=== PATIENT | male | born 1945 | race Caucasian/White ===

== ENCOUNTER 2017-08-09 16:57 | Emergency (ER) | payer MEDICARE, BC ==
[2017-08-09] MEDS ORDERED: Acetaminophen TAB* 325 MG PO ONE (18:12)
[2017-08-09] MEDS ORDERED: Ketorolac TAB * 10 MG TAB PO PRN ×2 (18:12→19:36)
--- NOTE | 2017-08-09 18:12 | RAD ---
INDICATION: Left shoulder injury. TECHNIQUE: 3 views of the left shoulder were obtained. FINDINGS: There is a comminuted oblique fracture of the mid diaphysis of the humerus with a large butterfly fragment present. The fracture fragments are displaced with the distal fragment displaced posteriorly approximately one shaft diameter relative the proximal fragment. In addition there is anterior dislocation of the humeral head. There is a Hill-Sachs fracture present which is likely chronic. There is a surgical screw which projects overlying the scapula. IMPRESSION: 1. OBLIQUE COMMINUTED DISPLACED FRACTURE OF THE MID DIAPHYSIS OF THE HUMERUS. 2. ANTERIOR DISLOCATION OF THE HUMERAL HEAD. 3. HILL-SACHS FRACTURE LIKELY CHRONIC. 4. SURGICAL SCREW WITHIN THE SCAPULA.
--- NOTE | 2017-08-09 18:15 | RAD ---
INDICATION: Left humerus injury. TECHNIQUE: 2 views of the left humerus were obtained. FINDINGS: Again note is made of an oblique comminuted fracture of the mid diaphysis of the humerus with a large butterfly fragment. The fracture fragments are displaced with the major distal fragment displaced posteriorly one shaft diameter. There is anterior dislocation of the humeral head as previously noted. There appears be a chronic Hill-Sachs fracture present. IMPRESSION: 1. OBLIQUE COMMINUTED DISPLACED FRACTURE OF THE MID DIAPHYSIS OF THE HUMERUS. 2. ANTERIOR DISLOCATION OF THE HUMERAL HEAD.
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
[2017-08-09 21:09] VITALS: BP 174/69
== END 2017-08-09 21:08 | disposition home or self-care (01) ==
LOC: ED 16:57
DX: S42.352A Displaced comminuted fracture of shaft of humerus, left arm, initial encounter for closed fracture (principal); S53.115A Anterior dislocation of left ulnohumeral joint, initial encounter; W19.XXXA Unspecified fall, initial encounter; Y92.9 Unspecified place or not applicable; G20 Parkinson's disease; F41.8 Other specified anxiety disorders; R35.0 Frequency of micturition; Z91.81 History of falling; Z88.8 Allergy status to other drugs, medicaments and biological substances; Z88.5 Allergy status to narcotic agent
CPT/HCPCS: 99283; A9270-GY

== ENCOUNTER 2017-11-15 09:53 | Inpatient (IN) | payer MEDICARE, BC ==
--- NOTE | 2017-11-10 21:38 | HP ---
PREOPERATIVE HISTORY AND PHYSICAL: DATE OF ADMISSION/SURGERY: 11/15/17. DATE OF OFFICE VISIT: 11/09/17. ATTENDING SURGEON: Dr. Linsey Galindo. * (DICTATED BY HERNANDEZ WAKEFIELD) PROCEDURE: Open reduction and internal fixation of the left humerus nonunion, malunion. CHIEF COMPLAINT: Left proximal humerus fracture. HISTORY OF PRESENT ILLNESS: Brian is a 72-year-old male, with history of Parkinson's disease, who presents to the clinic for followup of his left humeral shaft fracture. He has failed conservative measures to include a sling and a Adhikari brace and had a nonunion or malunion of the left humerus. Therefore, he has agreed to undergo an open reduction and internal fixation of the left humerus nonunion, malunion with Dr. Galindo on 11/15/17. PAST MEDICAL HISTORY: Depression, Parkinson, and deep brain stimulator. PAST SURGICAL HISTORY: Left and right total hip replacement, left lateral J with rotator cuff repair, and placement of a deep brain stimulator. The patient states that he had a complications after his last hip replacement with delirium after anesthesia. MEDICATIONS: 1. Tramadol 50 mg 1 to 2 every 6 hours as needed for pain. 2. Paroxetine 40 mg 1 by mouth in the morning. 3. Oxybutynin 3% 1 packet per day. 4. Carbidopa and levodopa 25/100 mg 1 tablet daily. 5. Tamsulosin HCL 0.4 mg 1 by mouth everyday. 6. Rytary 61.25/245 mg 3 capsules, 3 times a day. 7. Tylenol 650 mg at night and 250 mg during the day. 8. Ibuprofen 200 mg as needed. 9. Stool softener 2 to 3 times daily. 10. Ropinirole 1 mg 1 by mouth twice a day. 11. Diclofenac 50 mg 1 by mouth daily. 12. Calcium with vitamin D daily. 13. Aricept 5 mg 1 by mouth in the evening. ALLERGIES: OXYCODONE, GABAPENTIN. FAMILY HISTORY: Denies pertinent family history. Denies family history of DVT or PE. SOCIAL HISTORY: He lives with his . He is not a smoker. He reports occasional alcohol consumption. He is right hand dominant. He denies illegal drug use. REVIEW OF SYSTEMS: A 14-point review of systems was reviewed with the patient. Positive for Parkinson's disease, otherwise negative. He denies fevers, chills , chest pain, shortness of breath, history of DVT or PE, history of bleeding disorder. PHYSICAL EXAMINATION GENERAL: A 72-year-old well-developed, well-nourished male, in no acute distress. Alert and oriented x3. Appropriate mood and affect. Appropriate balance and coordination of the upper extremities. VITAL SIGNS: Height 66, weight 184. Pulse 78, blood pressure 140/78, respiratory rate 20, BMI 29.7. HEENT: Normocephalic, atraumatic. PERRLA. Throat clear. NECK: Supple. CARDIO: Regular rate and rhythm. S1, S2. No murmurs, gallops, or rubs. ABDOMEN: Soft, nontender. Positive bowel sounds. NEURO: Alert and oriented x3. Cranial nerves grossly intact. Sensation intact to light touch. MUSCULOSKELETAL: Left upper extremity: The skin is intact. Elbow flexion to 95 degrees, extension to 0. Full range of motion of the wrist and hand. Tenderness to palpation over the humerus. +2 radial pulse. Sensation intact to light touch distally. DIAGNOSTIC STUDIES: Multi view x-rays revealed no significant amount of healing of the left humeral shaft fracture. IMPRESSION: Left humerus fracture nonunion, malunion. PLAN: The patient is scheduled to undergo an open reduction and internal fixation of the left humerus nonunion, malunion with Dr. Galindo on 11/15/17. He does have a history of Parkinson's disease with a deep brain stimulator. He was discussed with the anesthesia this case will likely have to be done under general anesthesia with a block for pain management. We will use a bipolar for cautery as per [employer]'s recommendation and we will use tramadol postop since oxycodone caused issues postoperatively with his last surgery. We will request approval of a bone stimulator for use postoperatively since he already has a nonunion, malunion and is a poor healer. This will decrease his chance of him needing another surgery after this ORIF. He will also be in a Adhikari brace postoperatively and we are checking his vitamin D levels to make sure he has appropriate levels for healing. He will follow up in 10 to 14 days postop for followup and suture removal as well as x-rays. Tramadol will be used for postop pain management and he will be admitted after surgery to monitor his lethargy postoperatively. HERNANDEZ WAKEFIELD [id number]/[facility] #: [id number] [facility] SYSTEMAnya
[~2017-11-15 09:53] MED LIST: Buffered Lidocaine 0.9% SYRIN* 5 ML/SYR SYRINGE INTRADERM ONE; ROPIVACAINE 5 MG/ML 30 ML BTL (0.5%) ONE
--- OUTSIDE RECORDS SUMMARY | 2017-11-15 10:00 | XMS REPORT ---
:1945 External Reference #:[id number] Author Organization [employer] Address [address] [place] [address] [place] [address] Phone [phone] Care Team Providers Name Role Phone Eddie Lauren MD Primary Care Physician Unavailable Payers Type Date Identification Numbers Payment Provider Subscriber Medicare Primary Policy Number: [id number] Medicare Cristóbal Meier PayID: [id number] [address] [place] [address] Medigap Part B Expires: 2017 Policy Number: [id number] Medicare Cristóbaljoby Castilloni PayID: [id number] [address] [place] [address] Medigap Part B Policy Number: [id number] [facility] Cristóbal Meier PayID: [id number] [address] [place] [address] Workers Compensation Expires: Policy Number: [place] Domenica Camarena 2010 [id number] Exchange Renea Onset: 2011 PayID: [id number] [address] [place] [address] Problems Date Description Provider Status Onset: 06/28/2013 Syncope and collapse Ernst Mott M.D. Active Onset: 11/18/2014 Encounter for other orthopedic Ramon Pope M.D. Active aftercare Onset: 12/18/2014 Late effect of dislocation Ramon Pope M.D. Active Onset: 12/25/2015 Prosthetic arthroplasty of the hip Kristine Burleson M.D. Active Onset: 08/11/2017 Closed fracture of humerus Linsey Galindo MD Active Family History Date Family Member(s) Problem(s) Comments General Cancer Social History Type Date Description Comments Lives With spouse ETOH Use Rarely consumes alcohol Smoking Patient has never smoked Exercise Type/Frequency Exercises rarely Allergies, Adverse Reactions, Alerts Date Description Reaction Status Severity Comments 11/16/2015 Oxycodone disorientation active 11/16/2015 Gabapentin disorientation active 02/13/2013 NKDA inactive Medications Medication Date Status Form Strength Qnty SIG Indications Ordering Provider Tramadol HCL 08/17/ Active Tablets 50mg 40tabs 1-2 tablet Zaneb 2017 by mouth MD Josie every 6 hours as needed pain Paroxetine / Active 40mg 1 tablet Am Unknown 0000 Oxybutinin / Active Topical 1packet/day Unknown 3% 0000 Carbidopa/Le / Active 25/100mg 1 tablets Unknown vodopa 0000 daily Tamsulosin / Active Capsules 0.4mg 1 by mouth Unknown HCL 0000 every day Rytary / Active Capsules 61.25-245m 3 capsules 3 Unknown 0000 ER g times day Tylenol / Active 650 mg at Unknown 0000 night, 250mg during the day Ibuprofen / Active 200mg prn Unknown 0000 Stool / Active 2-3x daily Unknown Softener 0000 Ropinirole / Active Tablets 1mg 1 tab by Unknown HCL 0000 mouth with bid Diclofenac / Active Tablets DR 50mg Unknown Sodium 0000 Calcium + D / Active daily Unknown 0000 Aricept / Active Tablets 5mg take one Unknown 0000 tablet by mouth in the evening [place] 11/15/ Hx Tablets 5-325mg 70tabs 1-2 tablets M16.11 2015 - by mouth Bordoni, 02/17/ every 4-6 TESTER/LIFT TRUCKER 2016 hours as needed for pain. Coumadin 11/15/ Hx Tablets 2mg 45tabs 1 by mouth M16.11 2015 - daily post Bordoni, 02/17/ operatively TESTER/LIFT TRUCKER 2015 or as directed by vns/. do not take this medication prior to surgery [place] 09/08/ Hx Tablets 5-325mg 40tabs 1-2 tablets 2015 - by mouth Bordoni, 02/17/ every 4-6 TESTER/LIFT TRUCKER 2016 hours as needed for pain. [place] 09/23/ Hx Tablets 5-325mg 50tabs 1-2 by mouth 831.01 Ramon 2014 - every 4 to 6 Young, 02/16/ hours as M.D. 2014 needed pain Keflex 07/09/ Hx Capsules 500mg 9caps 1 by mouth Ernst Karimi 2013 - three times Brand, 07/16/ a day for 3 M.D. 2013 days Tamsulosin 00/00/ Hx Unknown - 2013 Flomax /00/ Hx 0.4mg 1 tablet hs Unknown 2014 Neurontin /00/ Hx Unknown - 2013 Klonopin 00/ Hx 0.5mg 1-4 tab prn Unknown - 2014 Sinemet /00/ Hx Unknown 2013 Requip 0000/ Hx 1mg 1 tab every Unknown 0000 - 2 hr while 09/07/ awake, max 2015 dosage 24mg/day Aspirin 00/ Hx Tablets 81mg 1 by mouth Unknown 0000 - every day 2015 Ibuprofen 00/00/ Hx 2 tablets Unknown 0000 - bid prn 2015 Vital Signs Date Vital Result Comment 11/09/2017 Height 66 inches 5'6" Weight 184.25 lb Heart Rate 78 /min BP Systolic 140 mmHg BP Diastolic 78 mmHg Respiratory Rate 20 /min Pain Level 0 BMI (Body Mass Index) 29.7 kg/m2 11/02/2017 Height 66 inches 5'6" Weight 189.00 lb Heart Rate 76 /min BP Systolic Sitting 142 mmHg BP Diastolic Sitting 86 mmHg Respiratory Rate 14 /min Pain Level 0 BMI (Body Mass Index) 30.5 kg/m2 10/05/2017 Height 66 inches 5'6" Weight 189.00 lb Heart Rate 80 /min BP Systolic Sitting 110 mmHg BP Diastolic Sitting 70 mmHg Respiratory Rate 28 /min Body Temperature 96.1 F Pain Level 0 BMI (Body Mass Index) 30.5 kg/m2 09/19/2017 Height 66 inches 5'6" Weight 189.00 lb Heart Rate 74 /min Respiratory Rate 15 /min Body Temperature 97.1 F Pain Level 1 BMI (Body Mass Index) 30.5 kg/m2 09/08/2017 Height 66 inches 5'6" Weight 185.00 lb BP Systolic 134 mmHg BP Diastolic 66 mmHg Respiratory Rate 20 /min Body Temperature 97.2 F Pain Level 0 BMI (Body Mass Index) 29.9 kg/m2 08/29/2017 Height 66 inches 5'6" Weight 185.00 lb BP Systolic 126 mmHg BP Diastolic 70 mmHg Respiratory Rate 20 /min Pain Level 0 BMI (Body Mass Index) 29.9 kg/m2 08/24/2017 Height 66 inches 5'6" Heart Rate 88 /min BP Systolic 132 mmHg BP Diastolic 76 mmHg Respiratory Rate 20 /min Body Temperature 98.0 F Pain Level 9 08/17/2017 Height 66 inches 5'6" Weight 185.00 lb Heart Rate 83 /min BP Systolic 134 mmHg BP Diastolic 77 mmHg Body Temperature 97.1 F Pain Level 7 BMI (Body Mass Index) 29.9 kg/m2 08/11/2017 Height 66 inches 5'6" Weight 195.00 lb BP Systolic 137 mmHg BP Diastolic 83 mmHg Respiratory Rate 16 /min Pain Level 6 BMI (Body Mass Index) 31.5 kg/m2 11/11/2016 Height 66 inches 5'6" Weight 200.00 lb Heart Rate 72 /min BP Systolic 115 mmHg BP Diastolic 80 mmHg Respiratory Rate 20 /min Body Temperature 97.3 F Pain Level 0 BMI (Body Mass Index) 32.3 kg/m2 02/19/2016 Height 66 inches 5'6" Weight 200.00 lb Pain Level 1 BMI (Body Mass Index) 32.3 kg/m2 12/25/2015 Height 66 inches 5'6" Weight 200.00 lb Heart Rate 60 /min Respiratory Rate 16 /min Pain Level 0 BMI (Body Mass Index) 32.3 kg/m2 11/16/2015 Height 66 inches 5'6" Weight 200.00 lb Heart Rate 82 /min BP Systolic 134 mmHg BP Diastolic 79 mmHg BMI (Body Mass Index) 32.3 kg/m2 09/09/2015 Height 66 inches 5'6" Weight 195.00 lb Heart Rate 81 /min BP Systolic 144 mmHg BP Diastolic 88 mmHg BMI (Body Mass Index) 31.5 kg/m2 05/12/2015 Height 64 inches 5'4" Weight 200.00 lb Pain Level 3 BMI (Body Mass Index) 34.3 kg/m2 04/21/2015 Height 64 inches 5'4" Weight 200.00 lb BMI (Body Mass Index) 34.3 kg/m2 02/17/2015 Height 64 inches 5'4" Weight 200.00 lb Pain Level 3 BMI (Body Mass Index) 34.3 kg/m2 12/18/2014 Height 64 inches 5'4" Weight 200.00 lb Pain Level 2 BMI (Body Mass Index) 34.3 kg/m2 11/18/2014 Height 64 inches 5'4" Weight 200.00 lb Pain Level 6 at times BMI (Body Mass Index) 34.3 kg/m2 11/04/2014 Height 64 inches 5'4" Weight 200.00 lb Pain Level 3 BMI (Body Mass Index) 34.3 kg/m2 10/27/2014 Height 64 inches 5'4" Weight 200.00 lb Pain Level 2 BMI (Body Mass Index) 34.3 kg/m2 09/23/2014 Height 64 inches 5'4" Weight 200.00 lb Heart Rate 81 /min BP Systolic Sitting 141 mmHg BP Diastolic Sitting 95 mmHg Respiratory Rate 30 /min Pain Level 1 BMI (Body Mass Index) 34.3 kg/m2 07/17/2013 Height 64 inches 5'4" Weight 200.00 lb Heart Rate 70 /min BP Systolic Sitting 122 mmHg Ra reg cuff BP Diastolic Sitting 80 mmHg Ra reg cuff Respiratory Rate 15 /min BMI (Body Mass Index) 34.3 kg/m2 06/28/2013 Height 64 inches 5'4" Weight 202.00 lb with shoe Heart Rate 76 /min BP Systolic Sitting 116 mmHg LA, reg cuff BP Diastolic Sitting 80 mmHg LA, reg cuff BP Systolic Standing 114 mmHg LA BP Diastolic Standing 80 mmHg LA Respiratory Rate 16 /min BMI (Body Mass Index) 34.7 kg/m2 04/10/2013 Height 65 inches 5'5" Weight 195.00 lb Heart Rate 83 /min BP Systolic 132 mmHg BP Diastolic 80 mmHg BMI (Body Mass Index) 32.4 kg/m2 03/20/2013 Height 69 inches 5'9" Weight 195.00 lb BMI (Body Mass Index) 28.8 kg/m2 02/13/2013 Height 60 inches 5'0" Weight 195.00 lb Heart Rate 83 /min BP Systolic 148 mmHg BP Diastolic 94 mmHg BMI (Body Mass Index) 38.1 kg/m2 Results Test Date Test Result H/L Range Note Urinalysis Profile 11/10/2017 Urine Color Yellow Urine Appearance Clear Urine Specific [place] 1.028 1.010-1.030 Urine pH 5.0 5-9 Urine Urobilinogen Negative Negative Urine Ketones Trace Negative Urine Protein Negative Negative Urine Leukocytes Negative Negative Urine Blood Negative Negative Urine Nitrite Negative Negative Urine Bilirubin Negative Negative Urine Glucose Negative Negative CBC Auto Diff 11/10/2017 White Blood Count 4.7 10^3/uL 3.5-10.8 Red Blood Count 4.01 10^6/uL 4.00-5.40 Hemoglobin 13.2 g/dL Low 14.0-18.0 Hematocrit 39 % Low 42-52 Mean Corpuscular Volume 97 fL High 80-94 Mean Corpuscular Hemoglobin 33 pg High 27-31 Mean Corpuscular HGB Conc 34 g/dL 31-36 Red Cell Distribution Width 14 % 10.5-15 Platelet Count 281 10^3/uL 150-450 Mean Platelet Volume 7.4 um3 7.4-10.4 Abs Neutrophils 2.9 10^3/uL 1.5-7.7 Abs Lymphocytes 1.2 10^3/uL 1.0-4.8 Abs Monocytes 0.5 10^3/uL 0-0.8 Abs Eosinophils 0.1 10^3/uL 0-0.6 Abs Basophils 0.1 10^3/uL 0-0.2 Abs Nucleated RBC 0 10^3/uL Granulocyte % 61.3 % 38-83 Lymphocyte % 25.3 % 25-47 Monocyte % 10.7 % High 0-7 Eosinophil % 1.6 % 0-6 Basophil % 1.1 % 0-2 Nucleated Red Blood Cells % 0.1 Inr/Protime 11/10/2017 Inr 1.03 High 0.77-1.02 Laboratory test finding 11/10/2017 Partial Thrombo Time 31.3 seconds 26.0 -36.3 PTT Type & Screen 11/10/2017 Patient Blood Type A Positive Antibody Screen NEGATIVE Laboratory test finding 11/10/2017 TSH (Thyroid Stim Horm) 1.74 mcIU/mL 0.34-5.60 Free T4 (Free Thyroxine) 0.79 ng/dL 0.61-1.12 Basic Metabolic Panel 11/10/2017 Sodium 140 mmol/L 135-145 Potassium 4.7 mmol/L 3.5-5.0 Chloride 106 mmol/L 101-111 Co2 Carbon Dioxide 25 mmol/L 22-32 Anion Gap 9 mmol/L 2-11 Glucose 91 mg/dL 70-100 Creatinine 0.93 mg/dL 0.67-1.17 Calcium 9.6 mg/dL 8.6-10.3 Egfr Non- 79.4 >60 Egfr 96.1 >60 1 Blood Urea Nitrogen 28 mg/dL High 6-24 BUN/Creatinine Ratio 30.1 High 8-20 Urine Culture And Sensitivities 11/10/2017 Urine Culture SEE RESULT BELOW 2 Urine Culture And Sensitivities 11/16/2015 Urine Culture SEE RESULT BELOW 3 Type & Screen 11/16/2015 Patient Blood Type A Positive Antibody Screen NEGATIVE Comp Metabolic Panel 11/16/2015 Sodium 137 mmol/L 133-145 Potassium 4.3 mmol/L 3.5-5.0 Chloride 104 mmol/L 101-111 Co2 Carbon Dioxide 27 mmol/L 22-32 Anion Gap 6 mmol/L 2-11 Glucose 85 mg/dL 70-100 Blood Urea Nitrogen 20 mg/dL 6-24 Creatinine 0.79 mg/dL 0.67-1.17 BUN/Creatinine Ratio 25.3 High 8-20 Calcium 9.2 mg/dL 8.6-10.3 Total Protein 7.1 g/dL 6.4-8.9 Albumin 3.9 g/dL 3.2-5.2 Globulin 3.2 g/dL 2-4 Albumin/Globulin Ratio 1.2 1-3 Total Bilirubin 0.50 mg/dL 0.2-1.0 Alkaline Phosphatase 69 U/L 34-104 Alt 3 U/L Low 7-52 Ast 14 U/L 13-39 Egfr Non- 96.4 >60 Egfr 124.0 >60 4 Laboratory test finding 11/16/2015 Partial Thrombo Time 30.3 seconds 26.0 -36.3 PTT Inr/Protime 11/16/2015 Inr 1.04 0.89-1.11 CBC No Diff 11/16/2015 White Blood Count 4.2 10^3/uL 3.5-10.8 Red Blood Count 4.27 10^6/uL 4.0-5.4 Hemoglobin 13.5 g/dL Low 14.0-18.0 Hematocrit 41 % Low 42-52 Mean Corpuscular Volume 96 fL High 80-94 Mean Corpuscular Hemoglobin 32 pg High 27-31 Mean Corpuscular HGB Conc 33 g/dL 31-36 Red Cell Distribution Width 14 % 10.5-15 Platelet Count 236 10^3/uL 150-450 Mean Platelet Volume 8 um3 7.4-10.4 Urinalysis Profile 11/16/2015 Urine Color Yellow Urine Appearance Clear Urine Specific [place] 1.023 1.010-1.030 Urine pH 5.0 5-9 Urine Urobilinogen Negative Negative Urine Ketones Trace Negative Urine Protein Negative Negative Urine Leukocytes Negative Negative Urine Blood Negative Negative Urine Nitrite Negative Negative Urine Bilirubin Negative Negative Urine Glucose Negative Negative Surgical Pathology 07/09/2013 S RUN DATE: 07/10/ <SEE NOTE> 5 1 Because ethnic data is not always readily available, this report includes an eGFR for both -Americans and non- Americans. The National Kidney Disease Education Program (NKDEP) does not endorse the use of the MDRD equation for patients that are not between the ages of 18 and 70, are , have extremes of body size, muscle mass, or nutritional status, or are non- or non-. According to the National Kidney Foundation, irrespective of diagnosis, the stage of the disease is based on the level of kidney function: Stage Description GFR(mL/min/1.73 m(2)) 1 Kidney damage with normal or decreased GFR 90 2 Kidney damage with mild decrease in GFR 60-89 3 Moderate decrease in GFR 30-59 4 Severe decrease in GFR 15-29 5 Kidney failure <15 (or dialysis) 2 SEE RESULT BELOW Name: CRISTÓBAL MEIER : [address]: Linsey Galindo MD Acct: [id number] Unit: [id number] AGE: 72 Location: [facility] Re11/10/17 SEX: M Status: REG REF SPEC: [id number] RIKKI: 11/10/17-[address]: Linsey Galindo MD REQ: [id number] RECD: 11/10/17 STATUS: COMP _ SOURCE: URINE SPDESC: ORDERED: Urine Culture QUERIES: Urine Source: Kidney Procedure Result Reported Site Urine Culture Final 11/11/17- 1258 ML No Growth (<1,000 CFU/mL) * ML - Main Lab . END OF REPORT DEPARTMENT OF PATHOLOGY, [address] [place] [address] Ashutosh Pineda M.D. Director [facility] # [id number] 3 SEE RESULT BELOW Name: CRISTÓBAL MEIER : [address]: Kristine Burleson MD Acct: [id number] Unit: [id number] AGE: 70 Location: [facility] Re11/16/15 SEX: M Status: REG REF SPEC: [id number] RIKKI: 11/16/15 [facility] DR: Kristine Burleson MD REQ: [id number] RECD: 11/16/15 STATUS: COMP _ SOURCE: URINE SPDESC: ORDERED: Urine Culture Procedure Result Reported Site Urine Culture Final 11/17/15- 1222 ML No Growth (<1,000 CFU/mL) * ML - MAIN LAB ([facility]) . END OF REPORT * ML=Testing performed at Main Lab DEPARTMENT OF PATHOLOGY, [facility] [address] [place], [place] [address] Ashutosh Pineda M.D. Director [facility] # [id number] 4 Because ethnic data is not always readily available, this report includes an eGFR for both -Americans and non- Americans. The National Kidney Disease Education Program (NKDEP) does not endorse the use of the MDRD equation for patients that are not between the ages of 18 and 70, are , have extremes of body size, muscle mass, or nutritional status, or are non- or non-. According to the National Kidney Foundation, irrespective of diagnosis, the stage of the disease is based on the level of kidney function: Stage Description GFR(mL/min/1.73 m(2)) 1 Kidney damage with normal or decreased GFR 90 2 Kidney damage with mild decrease in GFR 60-89 3 Moderate decrease in GFR 30-59 4 Severe decrease in GFR 15-29 5 Kidney failure <15 (or dialysis) 5 RUN DATE: 07/10/13 [facility] LAB LIVE PAGE 1 RUN TIME: 945 [facility] [employer] [place], [place] [address] Specimen Inquiry Name: CRISTÓBAL MEIER : [address]: Ernst Mott MD Acct: [id number] Unit: [id number] AGE: 68 Location: [facility] Re07/09/13 SEX: M Status: REG REF SPEC: [id number] RIKKI: 07/09/13- SUBM DR: Ernst Mott MD REQ: [id number] RECD: 07/09/13120 STATUS: SOUT _ ORDERED: LEVEL I FINAL DIAGNOSIS Event monitor: Foreign body (event monitor) (Gross diagnosis). PRE-OPERATIVE DIAGNOSIS Syncope and collapse. GROSS DESCRIPTION The specimen is received fresh labeled Cristóbal Meier, Explanted Event Monitor and consists of a 6.2 x 1.8 x 0.7 cm. silver metallic medical technologist hematology. The following inscription is identified: theScore Reveal XT, model 9529 SN [id number]. Per established hospital medical staff protocol no tissue is submitted. Gross only. Signed (signature on file) Funmilayo Perez MD 0945 END OF REPORT * ML=Testing performed at Main Lab DEPARTMENT OF PATHOLOGY, [address] [place] [address] Ashutosh Pineda M.D. Director [facility] # [id number] Procedures Date CPT Code Description Status 11/25/2015 60543 EKG, Interpretation Only Completed 11/24/2015 77078 THR Total Hip Replacement Completed 11/24/2015 46841 THR Total Hip Replacement Completed 10/23/2014 31986 ECHO Transthorasic Realtime 2D W Doppler & Color Flow Completed Hosp 10/21/2014 29003 EKG, Interpretation Only Completed 10/15/2014 11055 Capsulorrhaphy Anterior W/Coracoid Process Transfer Completed 10/15/2014 86697 Capsulorrhaphy Anterior W/Coracoid Process Transfer Completed 10/15/2014 75359 Tenodesis Biceps Long Tendon Completed 10/15/2014 30588 Tenodesis Biceps Long Tendon Completed 10/15/2014 87747 Repair Ruptured Musculotendinous Cuff Open, Chronic Completed 10/15/2014 82499 Repair Ruptured Musculotendinous Cuff Open, Chronic Completed 08/22/2014 59542 Dislocation Shoulder W/Anesthesia Completed 07/09/2013 84810 Removal Loop Recorder Completed 06/28/2013 36814 EKG Tracing & Interpretation Completed 06/04/2013 73151 Interrogation Device Eval,Implantable Loop Recorder Completed System 03/20/2013 13283 Rad Exam; Foot Comp Completed 03/06/2013 20882 Interrogation Device Eval,Implantable Loop Recorder Completed System 03/05/2013 45550 FX Treatment Great Toe; Closed w/o manipulation Completed 12/05/2012 62768 Interrogation Device Eval,Implantable Loop Recorder Completed System 07/31/2012 87126 Interrogation Device Eval,Implantable Loop Recorder Completed System 05/09/2012 75042 Interrogation Device Eval,Implantable Loop Recorder Completed System 02/16/2012 45771 Interrogation Device Eval,Implantable Loop Recorder Completed System 12/19/2011 97283 Interrogation Device Eval,Implantable Loop Recorder Completed System 11/09/2011 75262 Polysomnography Sleep Staging 4+ Parameters W/Cpap Completed 09/21/2011 59688 EEG Monitoring By Electrodes Completed 09/21/2011 68047 EEG ALL Night Recording Completed 09/21/2011 27052 Polysomnography Sleep Staging 4+ Parameters Completed 08/01/2011 11513 EKG, Interpretation Only Completed 05/15/2006 67531 ECHO/Stress Completed 05/15/2006 33670 Stress Test Completed 05/15/2006 26873 Stress Test Completed Encounters Type Date Location Provider CPT E/M Dx Office Visit 11/02/2017 [place] [address] S42.302D 1:15p [facility] Office Visit 10/05/2017 [place] [address] S42.302D 1:15p [facility] Office Visit 09/19/2017 [place] [address] S42.302D 1:30p [facility] Office Visit 09/08/2017 [facility] Rosaura Crowell 63527 S42.302A 2:30p [facility] PA-C Office Visit 08/29/2017 [place] [address] S42.302A 2:30p [facility] S42.302D Office Visit 08/24/2017 9:45a [facility] [place] [address] S42.302A [facility] Office Visit 08/17/2017 9:45a [facility] [place] [address] S42.302A [facility] S42.302D Office Visit 08/11/2017 8:15a [facility] [place] [address] S42.302A [facility] W01.0xxA Office Visit 11/11/2016 11:15a [facility] Kristine Burleson M.D. 32165 Z96.641 [facility] Z96.642 Office Visit 11/30/2015 9:52a [facility] Ancelmo Mendoza, [address]4514 [facility],pc PA Hospitalists F05 Z96.641 Z47.1 Office Visit 11/29/2015 9:52a [facility] Ancelmo Mendoza, 41765 [facility] PA Hospitalists F05 Z96.641 Z47.1 Office Visit 11/28/2015 11:58a [facility] Tarun Mac, 36711 F05 MEvangelina G20 Office Visit 11/28/2015 9:51a [facility],eulalio Villafuerte M.D. 90922 G20 Hospitalists F05 Z96.641 Z47.1 Office Visit 11/27/2015 11:57a [facility] Phillip Duncan, 75512 F05 Lito G20 Office Visit 11/27/2015 9:51a [facility], Herb Villafuerte M.D. 44761 G20 Hospitalists F05 Z96.641 Z47.1 Office Visit 11/26/2015 9:50a [facility], Herb Villafuerte M.D. 47745 G20 Hospitalists F05 Z96.641 Z47.1 Office Visit 11/25/2015 1:47p [facility], [place] [address] N40.0 Hospitalists G20 G47.33 Z96.641 Office Visit 11/25/2015 9:49a [facility], Herb Villafuerte M.D. 61363 G20 Hospitalists F05 Z47.1 Office Visit 11/24/2015 1:46p [facility], Aryan Reagan, 05512 N40.0 Hospitalists N.P. G47.33 G20 Z96.641 Office Visit 09/09/2015 11:00a [facility] Kristine Burleson, 39767 M16.11 Mary Morse Office Visit 05/12/2015 3:30p [facility] [place] [address] S43.015S Liliya.MAddiAAddi S43.015D Office Visit 04/21/2015 1:00p [facility] [place] [address] S43.015S EstebanMJim S43.015D Office Visit 02/17/2015 1:15p [facility] [place] [address] S43.015S KeanuAAddi S43.015D Office Visit 10/22/2014 1:36p [facility], Sarah Beth Simon, 95829 786.05 Hospitalists N.P. 518.0 786.06 332.0 Office Visit 10/21/2014 1:36p [facility], Sarah Beth Simon, 08429 786.05 Hospitalists N.P. 786.06 518.0 332.0 Office Visit 10/18/2014 11:12a [facility] Adrian De La Cruz, 80531 799.02 Assoc, Hospitalists M.Sachi Hospitalist 786.06 332.0 Office Visit 10/17/2014 11:11a [facility] Assoc, Deloris Mercado N.P. 10640 799.02 Hospitalists 332.0 786.06 V45.89 Office Visit 08/22/2014 7:06a [facility], [place] [address] 332.0 Hospitalists V72.84 831.00 V45.89 Office Visit 08/21/2014 7:00a [facility] Lalit Cloud 55896 831.00 C.M.AAddi Morse 718.31 Office Visit 06/28/2013 10:15a [facility] Ernst Mott 68258 780.2 [facility] Lito Office Visit 02/13/2013 3:30p [facility] Gio Machado M.D. 96049 715.95 C.M.AAddi Office Visit 05/18/2012 1:00p [facility] Ernst Mott 57137 780.2 [facility] Lito Office Visit 09/30/2011 9:34a Maria Fernanda Irving 73980 327.23 Disorder [place] Lito V67.59 Office Visit 09/12/2011 2:12p Maria Fernanda Irving, 66257 786.09 Disorder [place] Lito 780.2 Plan of Care Future Appointment(s):11/28/2017 3:00 pm - Linsey Galindo MD at [facility]11/15/2017 2:00 pm - Rosaura Crowell PA-C at [facility]11/15/2017 2:00 pm - Linsey Galindo MD at [facility]11/09/2017 - Linsey Galindo, MDS42.302D Unsp fx shaft of humerus, left arm, subs for fx w routn healFollow up:Follow up: 10-14 days post op
--- OUTSIDE RECORDS SUMMARY | 2017-11-15 10:01 | XMS REPORT ---
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 Active prostate Onset: 02/22/2011 Parkinson's disease Eddie Lauren M.D. Active Onset: 08/02/2011 Syncope and collapse Eddie Lauren M.D. Active Onset: 08/02/2011 Arthralgia of the pelvic region and Eddie Lauren M.D. Active thigh Onset: 05/02/2012 Benign prostatic hypertrophy without Eddie Lauren M.D. Active outflow obstruction Onset: 05/02/2012 Backache Eddie Lauren M.D. Active Onset: 10/30/2012 Entire limb Eddie Lauren M.D. 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 Active Onset: 07/01/2014 Removal of suture Eddie Lauren M.D. 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 Active Social History Type Date Description Comments Marital Status Has been 1 time Cigarette Use Nonsmoker Allergies, Adverse Reactions, Alerts Date Description Reaction Status Severity Comments 11/11/2017 Gabapentin active 11/11/2017 Oxycontin active Medications Medication Date Status Form Strength Qnty SIG Indications Ordering Provider Diclofenac 07/02 Active Tablets 50mg 60tab one twice a Eddie Samuels Sodium DR pranav hernandez for riki Lauren M.D. Stool Softener 10/26 Active Capsules 100mg 60cap take one Eddie Samuels s capsule by Leonidas mouth once a M.D. day Gelnique 10/26 Active Gel 3(28)% Eddie Arvind (mg/Act) Lito Lauren Tylenol Extra 06/21 Active Tablets 500mg 100ta 1 by mouth Eddie Samuels Strength /2015 bs twice a day Leonidas, as needed Lito Ropinirole HCL 06/02 Active Tablets 1mg 1 po qd Family /2010 [facility] Sinemet Active Tablets 25/100 one at 11 and Unknown /0000 pm prn Tamsulosin HCL Active Capsules 0.4mg 90cap 1 po qd Eddie Samuels / pranav Lauren M.D. Paxil Active Tablets 40mg 30tab 1 po qd Unknown /0000 s Rytary Active Capsules 61.25-245 3 by mouth 3 Unknown /0000 ER mg times daily Ibuprofen 200 Active Tablets 200mg 2 by mouth Unknown /0000 every 4 hours as needed Aricept Active Tablets 5mg 1 by mouth Unknown /0000 every day Melatonin 00 Active Capsules 5mg 2 tab every Unknown /0000 day at bedtime Miralax Active Powder 3350NF mix 1/2 -1 Unknown /0000 capful in glass of water and drink qpm Calcium Active Tablets 1 po qd Unknown Citrate + D3 /0000 Vitamin D3 Active Capsules 1000Unit 1 by mouth qd Unknown /0000 Handicap 05/18 Hx needed due Eddie Samuels Parking Permit /2018 to: Trung Lauren M.D. 10/23 parkinsons /2018 disease permanently NE Melatonin 01/11 Hx Capsules 3mg 8mg at Eddie Samuels /2015 bedtime Trung Lauren M.D. 11/11 Tylenol 8 Hour 09/28 Hx Tablets 650mg 1 at bedtime Eddie Samuels ER Trung Lauren M.D. 04/18 Resting Hand 02/06 Hx Dx: 332.0 Eddie Samuels Splint For The /2014 Leonidas Left Hand - Lito 05/24 Oxybutynin 09/23 Hx Tablets 10mg 30tab 1 po qd Eddie Arvind Chloride ER /2014 ER 24HR s Trung Lauren M.D. 09/23 Nystatin 06/27 Hx Powder 60g apply twice a Eddie Samuels /2014 day Trung Lauren M.D. 09/28 Betamethasone 06/23 Hx Cream 0.05% 45gm apply to Eddie Samuels Diprop /2014 affected area Trung Lauren M.D. 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 09/23 Oxybutynin 07/30 Hx Tablets 10mg 30tab 1 po qd Eddie Samuels Chloride ER /2013 ER 24HR s Trung Lauren M.D. 11/05 Physical 07/12 Hx evaluate and Rubén Noe, Therapy treat dx: Lito - v43.64. left 11/05 hip replacement Gelnique 05/28 Hx Gel 3(28)% Eddie Samuels /2013 (mg/Act) Trung Lauren M.D. 05/28 Coumadin 05/28 Hx Tablets 5mg 30tab 1 po qd Eddie Samuels Trung Savage M.D. 07/30 Oxycodone HCL 05/28 Hx Tablets 5mg 30tab 1/2 po prn Eddie Samuels Trung Savage M.D. 07/30 Ibuprofen 03/12 Hx Tablets 200mg 2-3 qid prn [facility] 03/05 [facility] Compression 12/11 Hx needs thigh Eddie Samuels Stockings high NE Trung Lauren M.D. 03/11 Physical 08/07 Hx treatment and Harika Therapy /2012 evaluation of Ferny, - lower back Afnp-C 10/30 and groin pain Handicap 05/28 Hx needed due Eddie Samuels Parkin to: Trung Lauren M.D. 03/11 parkinsons disease permanently NE Tramadol HCL 11/04 Hx Tablets 50mg 50tab 1 po q4-6 hrs Eddie Samuels /2011 s Trung Mcghee M.D. 05/02 Physical 06/14 Hx treatment and Eddie Samuels Therapy evaluation of Trung Lauren groin pain Cammie.Sachi 08/01 Physical 01/18 Hx needs PT to Eddie Samuels Therapy /2010 r upper Trung Lauren leg Lito 07/31 Flomax 04/01 Hx Caps ER 0.4mg 90cap 1 po daily Eddie Samuels 24HR Trung Savage M.D. 10/30 Ropinirole HCL 03/24 Hx Tablets 6mg 1 po qd [facility] Ropinirole HCL 02/26 Hx Tablets 4mg 2 po qd [facility] 03[facility]24 [facility] Zpack 02/26 Hx use as Eddie Samuels /2008 directed Trung Lauren M.D. 03/24 Physical 05/28 Hx Evaluate And 726.19 Eddie Samuels Therapy Treat Left Trung Lauren Shoulder M.DAddi 03/24 Pain. Ropinirole HCL 05/20 Hx Tablets 4mg 1 PO qd [facility] 02[facility]26 [facility] Paxil 05/20 Hx Tablets 10mg 1 po bid [facility] 10[facility]30 [facility] 01/30 Hx Evaluate And Eddie Samuels Therapy /2007 Treat Right Leonidas - Knee Pain M.D. 02/26 Naprosyn 12/19 Hx Tablets 500mg 100ta 1 bid with Eddie Samuels /2007 bs meals Trung Lauren.DAddi 03/24 Note 11/26 Hx Speech Eddie Samuels /2007 Evaluation Leonidas, - And Treatment M.D. 12/24 DX:332.0 Gym Excuse 06/05 Hx unable to due Eddie Samuels /2007 gym due to Leonidas - ACL tear for M.D. 12/24 at least mths Ambien 05/03 Hx Tablets 5mg 60tab 1-2 po qhs Funmilayo s prn sleep Trung Lyons M.D. 03/24 Speech Therapy 01/17 Hx PT needs A Eddie Samuels /2006 speech Leonidas - evaluation M.D. 12/24 dx: /2007 332.0 Naprosyn 06/07 Hx Tablets 500mg 30tab 1 bid With Eddie Samuels /[employer] Trung Lauren M.D. 09/10 Flexeril 06/07 Hx Tablets 10mg 30tab 1 PO tid prn Eddie Samuels /2006 s Muscle Spasm Trung Lauren M.D. 09/10 Handicap 11/09 Hx DX:Parkinsons Eddie Samuels Parking Disease Leonidas, - Duration:Life M.D. 12/24 Mirapex 07/13 Hx Tablets 0.125mg use q 2hr Eddie Samuels /2004 Trung Lauren M.D. 09/10 Coenzyme 07/13 Hx Eddie Samuels /2004 Trung Lauren M.D. 10/20 Physical 07/13 Hx treatment and Eddie Enrique /2004 evaluation Trung Lauren right M.D. 12/24 pain--4-6 weeks Sinemet 02/18 Hx Tablets 20/100 60tab 2 q2hr Eddie Samuels /2002 s Trung Lauren M.D. 12/24 PT Note 02/18 Hx needs a Subhash Bear /2002 exercise Lito Davis - stress 12/24 test-dx. cp on exertion Zovirax 02/18 Hx 15gm Apply Eddie Samuels /2002 qid-5Timepranav Lauren, - Per Day M.D. 12/24 Amoxicillin 05/09 Hx 250mg 30uni 1 PO tid Eddie Samuels /2000 Trung Ozuna M.D. 09/20 Speech Therapy 04/29 Hx Please See Eddie Samuels /1999 This PT Eval Leonidas, - And Rx as M.D. 05/04 Needed. DX /1999 Parkinsons Sinemet CR 11/04 Hx 50/200 mg 0unit 1 po 5 x day s [facility] 05/09 [facility] Eldepryl 11/04 Hx 5mg 0unit 1 po qd s [facility] 05/09 [facility] Paxil 11/04 Hx 20mg 0unit 1 po bid s [facility] Propafenone 12/01 Hx 20mg 0unit 1 PO qd Eddie Samuels /1997 Trung Savage M.D. 11/04 Maryam 11/05 Hx 60mg 30.un 1 bid prn Harika vinny Isaacs - Afnp-C 08/24 Prozac 06/09 Hx 20mg 30uni 1 PO qam Eddie Samuels /1997 Trung Ozuna M.D. 12/01 Neosporin 06/09 Hx 1Tube Use tid Eddie Samuels Opth. Oint /1997 Trung Lauren M.D. 12/01 Clarinex 02/01 Hx 10mg 0unit 1 qd Eddie Samuels /1996 Trung Savage M.D. 02/01 Maryam 02/01 Hx 60mg 30uni 1 bid Eddie Samuels /1996 Trung Ozuna M.D. 06/03 Azmacort 02/01 Hx 0unit Eddie Samuels Inhaler /1996 Trung Savage M.D. 06/03 Ambien 02/01 Hx 10mg 30uni 1 QHS prn Eddie Samuels /Trung Burns M.D. 02/18 Xanax 02/01 Hx .25mg 60uni 1 PO tid Eddie Samuels /Trung Burns M.D. 12/01 Requip / Hx Tablets 0.25mg 30tab 1 PO 12 X Family /0000 s Daily [facility] /2009 Gabapentin / Hx Capsules 100mg 90cap 1 po Q.D Unknown /0000 s - 05/28 Gelnique Hx Gel 3(28)% 3 pumps daily Unknown /0000 (mg/Act) - 10/26 Clonazepam Hx Tablets 0.5mg 60tab 1-4 tabs po Unknown /0000 s qhs - 03/05 Naproxen Hx Tablets 375mg 60tab prn Unknown /0000 s - 03/11 Aspir-81 / Hx Tablets 81mg 30tab 1 po qd Unknown /0000 s - 06/21 Tylenol Extra Hx Tablets 500mg 100ta 2 po tid Unknown Strength /0000 bs - 07/30 Iron Hx Tablets 325(65Fe) 1 tab by Unknown /0000 mg mouth twice a - day 01/11 Ibuprofen Hx Tablets 400mg Every 8HRS Unknown /0000 prn - 07/02 Aleve 00/ Hx Capsules 220mg qhs Unknown /0000 - 10/23 Medications Administered in Office Medication Date Status Form Strength Qnty SIG Indications Ordering Provider H1N1 MDCR Administered Injection Eddie Samuels vaccine any 009 denisse Lauren M.D. Immunizations CPT Code Status Date Vaccine Lot # [id number] Given 11/12/2016 High-Dose, Influenza Virus Vacccine-fluzone 65 [id number] and older 11755 Given 04/12/2016 Pneumococcal Conjugate Vacc-13 [id number] 88529 Given 11/04/2015 Influenza Vac, Quadriv[place], [place] [address] Given 12/01/2014 Influenza Vac, Quadrivalent, Slit Virus, Im [id number] 73868 Given 12/02/2013 High-Dose, Influenza Virus Vacccine-fluzone 65 [id number] and older 86497 Given 02/28/2013 Tdap Tetanus, W Pertussis [id number] Given 11/10/2012 Split Influenza Medicare: Fluzone [id number] Q2038 Given 12/23/2011 Split Influenza Medicare: Fluzone [id number] 65123 Given 07/07/2011 Tdap Tetanus, W Pertussis [id number] 57831 Given 12/01/2010 DO Not Use Split Influenza Virus Vaccine [id number] 63309 Given 12/12/2009 DO Not Use Split Influenza Virus Vaccine [id number] 54499 Given 2009 Pneumococcal Immunization [id number] 12863 Given 02/12/2009 H1N1 Virus Vaccine 04047 Given 02/12/2009 H1N1 Immunization Intramuscular/Intranasal W Counseling 82466 Given 01/28/2009 DO Not Use Split Influenza Virus Vaccine [id number] 44216 Given 02/27/2008 Zostivax [id number] 10571 Given 12/15/2007 DO Not Use Split Influenza Virus Vaccine [id number] 34038 Given 05/09/2006 Tetanus And Diptheria Adult Preservative Free [id number] >7Yrs Vital Signs Date Vital Result Comment 11/11/2017 BP Systolic 118 mmHg BP Diastolic 60 mmHg Heart Rate 72 /min Body Temperature 98.8 F Respiratory Rate 16 /min Height 64 inches 5'4" Weight 185.25 lb BMI (Body Mass Index) 31.8 kg/m2 10/24/2017 BP Systolic 102 mmHg BP Diastolic 68 mmHg Heart Rate 90 /min Body Temperature 98.1 F Height 64 inches 5'4" Weight 186.00 lb BMI (Body Mass Index) 31.9 kg/m2 04/18/2017 BP Systolic 128 mmHg BP Diastolic 76 mmHg Heart Rate 72 /min Body Temperature 98.1 F Respiratory Rate 16 /min Height 64 inches 5'4" Weight 191.00 lb BMI (Body Mass Index) 32.8 kg/m2 11/22/2016 BP Systolic 142 mmHg BP Diastolic 74 mmHg Heart Rate 104 /min Body Temperature 97.9 F Height 64 inches 5'4" Weight 189.38 lb BMI (Body Mass Index) 32.5 kg/m2 07/19/2016 BP Systolic 134 mmHg BP Diastolic 70 mmHg Heart Rate 74 /min Body Temperature 98.4 F Respiratory Rate 20 /min Weight 191.00 lb 04/12/2016 BP Systolic 132 mmHg BP Diastolic 72 mmHg Heart Rate 72 /min Body Temperature 97.4 F Respiratory Rate 20 /min Weight 191.00 lb 01/12/2016 BP Systolic 134 mmHg BP Diastolic 70 mmHg Heart Rate 74 /min Body Temperature 97.6 F Respiratory Rate 22 /min Weight 192.38 lb 10/27/2015 BP Systolic 144 mmHg BP Diastolic 80 mmHg Heart Rate 72 /min Body Temperature 97.5 F Respiratory Rate 22 /min Weight 194.00 lb 09/29/2015 BP Systolic 130 mmHg BP Diastolic 80 mmHg Heart Rate 72 /min Body Temperature 97.4 F Respiratory Rate 22 /min O2 % BldC Oximetry 93 % Weight 197.00 lb 06/22/2015 BP Systolic 122 mmHg BP Diastolic 64 mmHg Heart Rate 68 /min Body Temperature 97.6 F Respiratory Rate 20 /min Weight 193.00 lb 05/25/2015 BP Systolic 142 mmHg BP Diastolic 82 mmHg Heart Rate 80 /min Body Temperature 97.8 F Weight 206.00 lb 09/23/2014 BP Systolic 130 mmHg BP Diastolic 80 mmHg Heart Rate 64 /min Body Temperature 97.2 F Respiratory Rate 20 /min Weight 198.00 lb 07/01/2014 BP Systolic 118 mmHg BP Diastolic 80 mmHg Heart Rate 60 /min Body Temperature 97.9 F Respiratory Rate 18 /min 06/27/2014 BP Systolic 162 mmHg BP Diastolic 92 mmHg Heart Rate 80 /min Body Temperature 97.6 F Height 64 inches 5'4" Weight 199.00 lb BMI (Body Mass Index) 34.2 kg/m2 06/03/2014 BP Systolic 118 mmHg BP Diastolic 80 mmHg Heart Rate 66 /min Body Temperature 97.8 F Respiratory Rate 20 /min Height 64 inches 5'4" Weight 197.00 lb BMI (Body Mass Index) 33.8 kg/m2 04/30/2014 BP Systolic 140 mmHg BP Diastolic 76 mmHg Heart Rate 80 /min Body Temperature 97.9 F Respiratory Rate 18 /min Height 64 inches 5'4" Weight 201.00 lb BMI (Body Mass Index) 34.5 kg/m2 03/11/2014 BP Systolic 134 mmHg BP Diastolic 80 mmHg Heart Rate 64 /min Body Temperature 97.5 F Respiratory Rate 20 /min Height 64 inches 5'4" Weight 206.00 lb BMI (Body Mass Index) 35.4 kg/m2 03/05/2014 BP Systolic 126 mmHg BP Diastolic 80 mmHg Heart Rate 68 /min Body Temperature 97.6 F Respiratory Rate 20 /min Height 64 inches 5'4" Weight 204.00 lb BMI (Body Mass Index) 35.0 kg/m2 11/05/2013 BP Systolic 126 mmHg BP Diastolic 80 mmHg Heart Rate 64 /min Body Temperature 97.5 F Respiratory Rate 18 /min Height 64 inches 5'4" Weight 203.00 lb BMI (Body Mass Index) 34.8 kg/m2 07/30/2013 BP Systolic 130 mmHg BP Diastolic 84 mmHg Heart Rate 64 /min Body Temperature 96.2 F Respiratory Rate 20 /min Height 64 inches 5'4" Weight 202.00 lb BMI (Body Mass Index) 34.7 kg/m2 05/28/2013 BP Systolic 146 mmHg BP Diastolic 80 mmHg Heart Rate 64 /min Body Temperature 97.7 F Respiratory Rate 18 /min Height 64 inches 5'4" Weight 209.38 lb BMI (Body Mass Index) 35.9 kg/m2 04/25/2013 BP Systolic 130 mmHg BP Diastolic 84 mmHg Heart Rate 96 /min Body Temperature 97.7 F Respiratory Rate 22 /min Height 64 inches 5'4" Weight 201.00 lb BMI (Body Mass Index) 34.5 kg/m2 03/12/2013 BP Systolic 142 mmHg BP Diastolic 90 mmHg Heart Rate 90 /min Body Temperature 97.9 F Respiratory Rate 24 /min Height 64 inches 5'4" Weight 201.25 lb BMI (Body Mass Index) 34.5 kg/m2 12/25/2012 BP Systolic 134 mmHg BP Diastolic 80 mmHg Heart Rate 76 /min Body Temperature 97.4 F Respiratory Rate 18 /min Height 64 inches 5'4" 10/30/2012 BP Systolic 130 mmHg BP Diastolic 80 mmHg Heart Rate 72 /min Body Temperature 97.4 F Respiratory Rate 16 /min Height 64 inches 5'4" Weight 203.00 lb BMI (Body Mass Index) 34.8 kg/m2 05/02/2012 BP Systolic 130 mmHg BP Diastolic 80 mmHg Heart Rate 76 /min Body Temperature 97.3 F Respiratory Rate 18 /min Height 64 inches 5'4" Weight 203.00 lb BMI (Body Mass Index) 34.8 kg/m2 08/02/2011 BP Systolic 130 mmHg BP Diastolic 80 mmHg Heart Rate 76 /min Body Temperature 97.4 F Height 64 inches 5'4" Weight 198.00 lb BMI (Body Mass Index) 34.0 kg/m2 01/18/2011 BP Systolic 138 mmHg BP Diastolic 90 mmHg Heart Rate 78 /min Body Temperature 97.3 F Height 64 inches 5'4" Weight 202.00 lb BMI (Body Mass Index) 34.7 kg/m2 10/20/2010 BP Systolic 130 mmHg BP Diastolic 70 mmHg Heart Rate 80 /min Body Temperature 97.2 F Respiratory Rate 18 /min Height 64 inches 5'4" Weight 200.00 lb BMI (Body Mass Index) 34.3 kg/m2 06/10/2010 BP Systolic 138 mmHg BP Diastolic 76 mmHg Heart Rate 72 /min Body Temperature 97.7 F Height 64 inches 5'4" Weight 204.00 lb BMI (Body Mass Index) 35.0 kg/m2 05/14/2010 BP Systolic 132 mmHg BP Diastolic 82 mmHg Heart Rate 82 /min Body Temperature 96.7 F O2 % BldC Oximetry 93 % Height 64 inches 5'4" Weight 204.00 lb BMI (Body Mass Index) 35.0 kg/m2 06/02/2009 BP Systolic 132 mmHg BP Diastolic 90 mmHg Heart Rate 84 /min Height 64 inches 5'4" Weight 200.00 lb BMI (Body Mass Index) 34.3 kg/m2 2009 BP Systolic 118 mmHg BP Diastolic 76 mmHg Heart Rate 88 /min Height 64 inches 5'4" Weight 203.00 lb BMI (Body Mass Index) 34.8 kg/m2 02/26/2009 BP Systolic 120 mmHg BP Diastolic 70 mmHg Heart Rate 80 /min Body Temperature 97.7 F Height 64 inches 5'4" Weight 201.00 lb BMI (Body Mass Index) 34.5 kg/m2 05/20/2008 BP Systolic 134 mmHg BP Diastolic 74 mmHg Heart Rate 72 /min Weight 180.00 lb 01/22/2008 BP Systolic 134 mmHg BP Diastolic 74 mmHg Heart Rate 88 /min Height 64 inches 5'4" 01/16/2008 BP Systolic 120 mmHg BP Diastolic 80 mmHg Heart Rate 68 /min Body Temperature 98.8 F Height 64 inches 5'4" Weight 183.00 lb BMI (Body Mass Index) 31.4 kg/m2 12/25/2007 BP Systolic 132 mmHg BP Diastolic 82 mmHg Heart Rate 80 /min Height 64 inches 5'4" Weight 179.00 lb BMI (Body Mass Index) 30.7 kg/m2 10/25/2007 BP Systolic 120 mmHg BP Diastolic 70 mmHg Heart Rate 80 /min Respiratory Rate 18 /min Height 64 inches 5'4" 09/11/2007 BP Systolic 122 mmHg BP Diastolic 80 mmHg Heart Rate 72 /min Body Temperature 97.1 F Height 64 inches 5'4" Weight 177.00 lb BMI (Body Mass Index) 30.4 kg/m2 05/04/2007 BP Systolic 112 mmHg BP Diastolic 60 mmHg Heart Rate 62 /min Height 64 inches 5'4" Weight 197.00 lb BMI (Body Mass Index) 33.8 kg/m2 10/02/2006 BP Systolic 136 mmHg BP Diastolic 88 mmHg Heart Rate 72 /min Body Temperature 97.0 F Height 64 inches 5'4" Weight 196.00 lb BMI (Body Mass Index) 33.6 kg/m2 06/30/2003 BP Systolic 124 mmHg BP Diastolic 74 mmHg Body Temperature 98.9 F Height 64 inches 5'4" Weight 196.00 lb BMI (Body Mass Index) 33.6 kg/m2 02/18/2003 BP Systolic 120 mmHg BP Diastolic 80 mmHg Heart Rate 72 /min Body Temperature 99.0 F Height 64 inches 5'4" Weight 198.00 lb BMI (Body Mass Index) 34.0 kg/m2 04/08/2002 BP Systolic 132 mmHg BP Diastolic 74 mmHg Heart Rate 72 /min Height 66.5 inches 5'6.50" Weight 201.00 lb BMI (Body Mass Index) 32.4 kg/m2 08/24/2001 BP Systolic 126 mmHg BP Diastolic 88 mmHg Heart Rate 72 /min Body Temperature 97.2 F Height 66.5 inches 5'6.50" Weight 193.00 lb BMI (Body Mass Index) 31.1 kg/m2 05/09/2000 BP Systolic 120 mmHg BP Diastolic 82 mmHg Body Temperature 96.7 F Height 66.5 inches 5'6.50" Weight 194.00 lb BMI (Body Mass Index) 31.3 kg/m2 06/22/1999 BP Systolic 130 mmHg BP Diastolic 90 mmHg Heart Rate 72 /min Body Temperature 97.9 F Height 66.5 inches 5'6.50" Weight 196.00 lb BMI (Body Mass Index) 31.6 kg/m2 11/04/1998 BP Systolic 120 mmHg BP Diastolic 80 mmHg Height 66.5 inches 5'6.50" Weight 193.00 lb 12/01/1997 BP Systolic 110 mmHg BP Diastolic 80 mmHg Body Temperature 97.2 F Weight 185.00 lb 06/03/1997 BP Systolic 128 mmHg BP Diastolic 82 mmHg Body Temperature 98.3 F Height 66.00 inches 5'6" Weight 180.00 lb 02/01/1997 BP Systolic 138 mmHg BP Diastolic 84 mmHg Body Temperature 97.5 F Height 66.00 inches 5'6" Weight 187.00 lb Up 7 LBS Results Test Date Test Result H/L Range Note Laboratory test finding 03/17/2017 [facility] Test See Attached Laboratory test finding 03/14/2017 [facility] Test See Attached Complete Blood Count 11/22/2016 WBC 4.1 x10^3/UL 3.6-9.6 RBC 4.35 x10^6/UL 3.90-5.70 HGB 14.2 g/dL 12.1-17.2 HCT 42 % 36-50 MCV 96.0 fL 82.2-97.4 MCH 32.7 pg 27.6-33.3 MCHC 34.0 g/dL 33.0-35.5 RDW 14.2 % High 11.6-13.7 PLT 275 x10^3/UL 150-400 MPV 6.2 fL Low 7.4-10.4 Gran # 2.5 x10^3/UL 1.5-7.2 Lymph# 1.3 x10^3/UL 0.7-4.9 Vermilion# 0.3 x10^3/UL 0.1-0.9 Gran % 60.1 % 42.2-75.2 Lymph % 31.9 % 20.5-51.1 [place]% 8.0 % 1.7-9.3 Lipid Profile 11/22/2016 Cholesterol 199 mg/dL 120-200 Triglycerides 54 mg/dL 30-200 HDL Cholesterol 50 mg/dL 30-70 LDL (Calculated) 138 CALC High 0-129 VLDL Cholesterol 11 mg/dL 0-50 HDL Risk Factor 4.0 CALC 0.0-4.4 Comprehensive Metabolic Prof 11/22/2016 Sodium 140 mEq/L 134-149 Potassium 4.3 mEq/L 3.6-5.5 Chloride 102 mEq/L 94-112 Carbon Dioxide 26 mEq/L 21-32 Glucose 100 mg/dL 70-105 BUN 23 mg/dL 6-26 Creatinine 0.7 mg/dL 0.6-1.4 BUN/Creat Ratio 32.9 CALC 8.0-36.0 Calcium 9.3 mg/dL 8.6-10.2 Total Protein 7.5 g/dL 6.4-8.3 Albumin 4.3 g/dL 3.8-5.5 Globulin 3.2 g/dL 2.0-4.8 A/G Ratio 1.3 CALC 0.6-2.3 Alk. Phosphatase 62 U/L 22-95 Alt (SGPT) 4 U/L Low 7-35 1 Ast (Sgot) 13 U/L 5-34 Total Bilirubin 1.0 mg/dL 0.2-1.3 GFR Non- >60 ml/min/1.73m^ >=60 GFR >60 ml/min/1.73m^ >=60 Laboratory test finding 11/22/2016 Vitamin D25 37 30-100 Laboratory test finding 04/12/2016 PSA 0.3 ng/mL 0.0-4.0 Basic Metabolic Profile 09/29/2015 Sodium 140 mEq/L 134-149 Potassium 4.0 mEq/L 3.6-5.5 Chloride 103 mEq/L 94-112 Carbon Dioxide 26 mEq/L 21-32 Glucose 96 mg/dL 70-105 BUN 20 mg/dL 6-26 Creatinine 0.7 mg/dL 0.6-1.4 BUN/Creat Ratio 28.6 CALC 8.0-36.0 Calcium 9.3 mg/dL 8.6-10.2 GFR Non- >60 ml/min/1.73m^ >=60 GFR >60 ml/min/1.73m^ >=60 Complete Blood Count 09/29/2015 WBC 5.2 x10^3/UL 3.6-9.6 RBC 4.23 x10^6/UL 3.90-5.70 HGB 14.0 g/dL 12.1-17.2 HCT 42 % 36-50 MCV 99.0 fL High 82.2-97.4 MCH 33.1 pg 27.6-33.3 MCHC 33.6 g/dL 33.0-35.5 RDW 13.8 % High 11.6-13.7 PLT 237 x10^3/UL 150-400 MPV 7.1 fL Low 7.4-10.4 Gran # 3.3 x10^3/UL 1.5-7.2 Lymph# 1.5 x10^3/UL 0.7-4.9 Vermilion# 0.4 x10^3/UL 0.1-0.9 Gran % 61.8 % 42.2-75.2 Lymph % 29.3 % 20.5-51.1 Vermilion% 8.9 % 1.7-9.3 Ua - Non Micro (a) 09/29/2015 Appearance yellow Color clear Glucose, Urine (Fma/CMC/CTX) neg Bilirubin neg Ketones trace SP Grav 1.025 Blood neg PH 5.5 Protein neg Urobil 0.2 Nitrite neg Leukocytes (a/[facility]) neg Laboratory test finding 09/29/2015 Inr ([facility]) 1.0 0.9-1.1 Comprehensive Metabolic Prof 05/25/2015 Sodium 138 mEq/L 134-149 Potassium 4.2 mEq/L 3.6-5.5 Chloride 101 mEq/L 94-112 Carbon Dioxide 25 mEq/L 21-32 Glucose 92 mg/dL 70-105 BUN 22 mg/dL 6-26 Creatinine 0.8 mg/dL 0.6-1.4 BUN/Creat Ratio 27.5 CALC 8.0-36.0 Calcium 9.0 mg/dL 8.6-10.2 Total Protein 7.9 g/dL 6.4-8.3 Albumin 4.3 g/dL 3.8-5.5 Globulin 3.6 g/dL 2.0-4.8 A/G Ratio 1.2 CALC 0.6-2.3 Alk. Phosphatase 80 U/L 22-95 Alt (SGPT) 6 U/L Low 7-35 2 Ast (Sgot) 13 U/L 5-34 Total Bilirubin 0.5 mg/dL 0.2-1.3 GFR Non- >60 ml/min/1.73m^ >=60 GFR >60 ml/min/1.73m^ >=60 CBC Electronic (a) 05/25/2015 WBC 4.4 3.6-9.6 RBC 4.39 3.90-5.70 Hemoglobin (Fma/CMC/CTX) 13.9 g/dL 12.1 - 17.2 Hematocrit (Fma/CMC/CTX) 42.3 % 36.1 - 50.3 Platelets 215 10^3/ul 150-400 Lymph% 35.3 % 17.0-48.0 Mixed% 6.3 Neutrophils % 58.4 Mean Corpuscular Vol 96 82.2-97.4 Mean Corpuscular Hemoglobin 31.6 27.6-33.3 Mean Corpuscular Hemo Concen 32.8 32.0-36.0 RDW 15.1 High 11.6-13.7 Mean Platelet Volume 6.5 5.5-11.0 Lipid Profile 06/03/2014 Cholesterol 213 mg/dL High 120-200 Triglycerides 62 mg/dL 30-200 HDL Cholesterol 59 mg/dL 30-70 LDL (Calculated) 142 CALC High 0-129 VLDL Cholesterol 12 mg/dL 0-50 HDL Risk Factor 3.6 CALC 0.0-4.4 Comprehensive Metabolic Prof 06/03/2014 Sodium 137 mEq/L 134-149 Potassium 4.2 mEq/L 3.6-5.5 Chloride 100 mEq/L 94-112 Carbon Dioxide 26 mEq/L 21-32 Glucose 97 mg/dL 70-105 BUN 21 mg/dL 6-26 Creatinine 0.7 mg/dL 0.6-1.4 BUN/Creat Ratio 30.0 CALC 8.0-36.0 Calcium 9.6 mg/dL 8.6-10.2 Total Protein 7.3 g/dL 6.4-8.3 Albumin 4.2 g/dL 3.8-5.5 Globulin 3.1 g/dL 2.0-4.8 A/G Ratio 1.4 CALC 0.6-2.3 Alk. Phosphatase 56 U/L 22-95 Alt (SGPT) 3 U/L Low 7-35 3 Ast (Sgot) 13 U/L 5-34 Total Bilirubin 0.8 mg/dL 0.2-1.3 Complete Blood Count 06/03/2014 WBC 4.3 x10^3/UL 3.6-9.6 RBC 4.69 x10^6/UL 3.90-5.70 HGB 15.1 g/dL 12.1-17.2 HCT 46 % 36-50 MCV 98.0 fL High 82.2-97.4 MCH 32.2 pg 27.6-33.3 MCHC 33.0 g/dL 33.0-35.5 RDW 14.3 % High 11.6-13.7 PLT 227 x10^3/UL 150-400 MPV 6.8 fL Low 7.4-10.4 Gran # 3.0 x10^3/UL 1.5-7.2 Lymph# 1.1 x10^3/UL 0.7-4.9 Vermilion# 0.2 x10^3/UL 0.1-0.9 Gran % 67.6 % 42.2-75.2 Lymph % 26.8 % 20.5-51.1 Vermilion% 5.6 % 1.7-9.3 Wound Culture/Sensi 04/18/2014 Wound/Misc (SEE NOTE) 4, 5 Culture-Gram Stain Laboratory test finding 04/18/2014 Anaerobic Culture (SEE NOTE) 4, 6 Laboratory test finding 05/02/2012 PSA 0.10 ng/mL 0.00-4.00 Laboratory test finding 04/02/2012 [facility] [place] [facility] Test basic,cbc,pt CBC Auto Diff 07/31/2011 White Blood Count 6.9 CUMM 4.8-10.8 Red Cell Count 4.37 CUMM Low 4.6-6.2 Hemoglobin 14.1 g/dL 14.0-18.0 Hematocrit 42 % 42-52 Mean Corpuscular Volume 96 um3 High 80-94 Mean Corpuscular Hemoglob 32 pg High 27-31 Mean Corpuscular HGB Cone 33 g/dL 32-36 Redcell Distribution WDTH 14 % 10.5-15 Platelet Count 239 CUMM 150-450 Mean Platelet Volume 7.7 um3 7.4-10.4 Gran % 69.1 % 38-83 Lymph % 20.1 % Low 25-47 Mononuclear % 8.4 % 1-9 Eosinophil % 1.2 % 0-6 Basophil % 1.2 % 0-2 Abs Lymphs 1.4 1.0-4.8 Abs Mononuclear 0.6 0-0.8 Absolute Neutrophil Count 4.7 1.5-7.7 Abs Eosinophils 0.1 0-0.6 Abs Basophils 0.1 0-0.2 Comp Metabolic Panel 07/31/2011 Sodium 137 mmol/L 135-145 Potassium 4.1 mmol/L 3.5-5.0 Chloride 104 mmol/L 101-111 Co2 (Carbon Dioxide) 25.0 mmol/L 22-32 Anion Gap 8.0 mmol/L 2-11 7 Glucose 86 mg/dL 70-100 BUN 20 mg/dL 6-24 Creatinine 0.8 mg/dL 0.50-1.40 One Over Creatinine 1.25 BUN/Creatinine Ratio 25.0 High 8-20 Calcium 9.3 mg/dL 8.1-9.9 Total Protein 7.4 GM/DL 6.2-8.1 Albumin 4.1 GM/DL 3.2-5.2 Globulin 3.3 GM/DL 2-4 Albumin/Globulin Ratio 1.2 1-3 Bilirubin Total 1.0 mg/dL 0.4-1.5 8 Alkaline Phosphatase 53 U/L 39-117 Alt (SGPT) 7 U/L Low 17-63 Ast (Sgot) 20 U/L 12-42 eGFR Non- 96.1 > 60 eGFR 123.6 > 60 9 Laboratory test finding 07/31/2011 Magnesium 2.0 mg/dL 1.7-2.6 Troponin-I 0 NG/ML 0-0.06 10 Urinalysis 07/31/2011 Ua Color BRENNAN Yellow Appearance-Urine TURBID Clear Specific [place]-Ur 1.029 1.010-1.030 Esterase-Urine NEGATIVE Negative Nitrite NEGATIVE Negative Knyicmjjgpea-Pk-VPL NEGATIVE Negative Protein-Urine TRACE Negative PH-Urine 6.0 5-9 Blood-Urine NEGATIVE Negative Ketones-Urine NEGATIVE Negative Bilirubin-Ur NEGATIVE Negative Glucose-Urine NEGATIVE Negative Laboratory test finding 07/31/2011 Lactic Acid 0.8 mmol/L 0.5-1.6 CBC 10/27/2010 WBC 4.1 x10E3/uL Low 4.3-10.9 11 RBC 4.74 x10E6/uL 4.70-6.20 11 Hemoglobin 14.7 g/dL 13.0-17.0 11 Hematocrit 47.2 % 39.0-50.0 11 MCV 99.6 fl High 82.0-98.0 11 MCH 31.0 pg 27.5-33.5 11 MCHC 31.1 g/dL Low 32.0-36.0 11 RDW 14.0 % 11.5-14.5 11 Platelet Count 227 x10E3/uL 130-400 11 MPV 10.6 fl High 6.5-10.5 11 Segmented Neutrophils 52.3 % 44.0-74.0 11 Lymphocytes 31.8 % 15.0-45.0 11 Monocytes 12.5 % 2.0-13.0 11 Eosinophils 2.2 % 0.0-6.0 11 Basophils 1.2 % 0.0-2.0 11 Neutrophil Absolute 2.1 x10E3/uL 1.4-7.0 11 Lymphocytes Absolute 1.3 x10E3/uL 1.0-3.4 11 Monocyte Absolute 0.5 x10E3/uL 0.2-1.0 11 Eosinophil Absolute 0.1 x10E3/uL 0.0-0.5 11 Basophil Absolute 0.0 x10E3/uL 0.0-0.2 11 Comprehensive Metabolic 10/27/2010 Glucose 88 mg/dL 70-100 11 BUN 19 mg/dL 5-21 11 Creatinine, Serum 0.82 mg/dL 0.60-1.30 11 Sodium 139 mmol/L 136-146 11 Potassium 4.5 mmol/L 3.5-5.3 11 Chloride 105 mmol/L 98-110 11 Carbon Dioxide 29 mmol/L 20-32 11 Albumin 4.3 g/dL 3.5-4.7 11 Protein, Total 7.5 g/dL 6.4-8.3 11 Calcium 9.4 mg/dL 8.4-10.4 11 Alkaline Phosphatase 66 U/L 10-118 11 Sgot (Ast) 21 U/L 3-40 11 SGPT (Alt) 9 U/L 7-50 11 Bilirubin, Total 0.70 mg/dL 0.30-1.20 11 Lipid Panel 10/27/2010 Cholesterol, Total 194 mg/dL <200 11 Triglycerides 55 mg/dL <150 11 HDL Cholesterol 54 mg/dL 40-60 11 Chol/HDL Cholesterol 3.6 11, 12 LDL Cholesterol, Calc. 129 mg/dL 11, 13 LDL/HDL Cholesterol 2.4 11, 14 Laboratory test finding 10/27/2010 PSA, Total 0.40 ng/ml 0.00-4.00 11, 15 Egfr (Calculated) 10/27/2010 Estimated GFR (CALCULATED) 11 Egfr >60 11, 16 Egfr, -[place] >60 11, 17 Ua - Non Micro (Fma) 10/20/2010 Appearance CLEAR Color YELLOW Glucose NEG Bilirubin NEG Ketones TRACE SP Grav 1.025 Blood NEG PH 5.5 Protein NEG Urobil 0.2 Nitrite NEG Leukocytes (Fma/[facility]) NEG Comprehens.+ Hepatic 05/14/2010 Glucose 95 mg/dL 70-100 18 BUN 24 mg/dL High 5-21 18 Creatinine, Serum 0.91 mg/dL 0.60-1.30 18 Sodium 142 mmol/L 136-146 18 Potassium 4.8 mmol/L 3.5-5.3 18 Chloride 105 mmol/L 98-110 18 Carbon Dioxide 31 mmol/L 20-32 18 Albumin 4.6 g/dL 3.5-4.7 18 Protein, Total 7.7 g/dL 6.4-8.3 18 Calcium 9.5 mg/dL 8.4-10.4 18 Alkaline Phosphatase 66 U/L 10-118 18 Sgot (Ast) 21 U/L 3-40 18 SGPT (Alt) 12 U/L 7-50 18 Bilirubin, Total 0.60 mg/dL 0.30-1.20 18 Bilirubin, Direct 0.13 mg/dL 0.00-0.40 18 Bilirubin, Indirect 0.47 mg/dL 0.10-1.10 18 CBC 05/14/2010 WBC 5.0 x10E3/uL 4.3-10.9 18 RBC 4.80 x10E6/uL 4.70-6.20 18 Hemoglobin 15.0 g/dL 13.0-17.0 18 Hematocrit 47.0 % 39.0-50.0 18 MCV 97.9 fl 82.0-98.0 18 MCH 31.3 pg 27.5-33.5 18 MCHC 31.9 g/dL Low 32.0-36.0 18 RDW 13.4 % 11.5-14.5 18 Platelet Count 235 x10E3/uL 130-400 18 MPV 10.1 fl 6.5-10.5 18 Segmented Neutrophils 54.8 % 44.0-74.0 18 Lymphocytes 31.1 % 15.0-45.0 18 Monocytes 10.9 % 2.0-13.0 18 Eosinophils 2.2 % 0.0-6.0 18 Basophils 1.0 % 0.0-2.0 18 Neutrophil Absolute 2.7 x10E3/uL 1.4-7.0 18 Lymphocytes Absolute 1.6 x10E3/uL 1.0-3.4 18 Monocyte Absolute 0.5 x10E3/uL 0.2-1.0 18 Eosinophil Absolute 0.1 x10E3/uL 0.0-0.5 18 Basophil Absolute 0.1 x10E3/uL 0.0-0.2 18 Laboratory test 05/14/2010 Brain [place]. Peptide(BNP) 3.0 pg/mL 0.0-100.0 18, 19 finding T-4 Free 0.9 ng/dL 0.8-1.8 18 TSH (Thyrotropin) 1.870 uIU/ml 0.350-5.500 18 Egfr (Calculated) 05/14/2010 Estimated GFR (CALCULATED) 18 Egfr >60 18, 20 Egfr, -[place] >60 18, 21 Comprehensive Metabolic 03/31/2009 Glucose 95 mg/dL 70-100 22 BUN 20 mg/dL 5-21 22 Creatinine, Serum 0.79 mg/dL 0.60-1.30 22 Sodium 138 mmol/L 136-146 22 Potassium 4.0 mmol/L 3.5-5.3 22 Chloride 104 mmol/L 98-110 22 Carbon Dioxide 32 mmol/L 20-32 22 Albumin 4.3 g/dL 3.5-4.7 22 Protein, Total 7.3 g/dL 6.4-8.3 22 Calcium 9.3 mg/dL 8.4-10.4 22 Alkaline Phosphatase 63 U/L 10-118 22 Sgot (Ast) 26 U/L 3-40 22 SGPT (Alt) 9 U/L 7-50 22 Bilirubin, Total 0.80 mg/dL 0.30-1.20 22 Lipid Panel 03/31/2009 Cholesterol, Total 197 mg/dL <200 22 Triglycerides 58 mg/dL <150 22 HDL Cholesterol 52 mg/dL 40-60 22 Chol/HDL Cholesterol 3.8 22, 23 LDL Cholesterol, Calc. 133 mg/dL 22, 24 LDL/HDL Cholesterol 2.6 22, 25 Laboratory test finding 03/31/2009 PSA, Total 0.30 ng/ml 0.00-4.00 22, 26 CBC 03/31/2009 WBC 4.1 x103 Low 4.3-10.9 22 RBC 4.70 x106 4.70-6.20 22 Hemoglobin 15.1 g/dL 13.0-17.0 22 Hematocrit 46.5 % 39.0-50.0 22 MCV 98.9 fl High 82.0-98.0 22 MCH 32.1 pg 27.5-33.5 22 MCHC 32.5 g/dL 32.0-36.0 22 RDW 13.5 % 11.5-14.5 22 Platelet Count 245 x103 130-400 22 MPV 10.1 fl 6.5-10.5 22 Segmented Neutrophils 51.0 % 44.0-74.0 22 Band 0.0 % 0.0-4.0 22 Lymphocytes 32.0 % 15.0-45.0 22 Monocytes 13.0 % 2.0-13.0 22 Eosinophils 2.0 % 0.0-6.0 22 Basophils 2.0 % 0.0-2.0 22 Neutrophil Absolute 2.1 x103 1.4-7.0 22 Lymphocytes Absolute 1.3 x103 1.0-3.4 22 Monocyte Absolute 0.5 x103 0.2-1.0 22 Eosinophil Absolute 0.1 x103 0.0-0.5 22 Basophil Absolute 0.1 x103 0.0-0.2 22 GFR Calculated 03/31/2009 GFR (Calculated) >60 22, 27 Ua - Non Micro (a) 2009 Appearance CLEAR Color YELLOW Glucose NEG Bilirubin NEG Ketones TRACE SP Grav 1.020 Blood NEG PH 5.5 Protein NEG Urobil 0.2 Nitrite NEG Leukocytes ([facility]ma/[facility]) NEG PT + PTT No Therpy/Unkn 12/25/2007 PTT 29.2 seconds 23.7-35.5 PT (No Therapy/Unknown) 13.6 seconds 11.7-14.5 28 Inr 1.1 29 CBC 12/25/2007 WBC 7.4 x103 4.3-10.9 RBC 4.62 x106 Low 4.70-6.20 Hemoglobin 14.8 g/dL 13.0-17.0 Hematocrit 45.2 % 39.0-50.0 MCV 97.8 fl 82.0-98.0 MCH 32.0 pg 27.5-33.5 MCHC 32.7 g/dL 32.0-36.0 RDW 13.2 % 11.5-14.5 Platelet Count 285 x103 130-400 MPV 9.7 fl 6.5-10.5 Segmented Neutrophils 65.6 % 44.0-74.0 Lymphocytes 23.0 % 15.0-45.0 Monocytes 9.8 % 2.0-13.0 Eosinophils 1.1 % 0.0-6.0 Basophils 0.5 % 0.0-2.0 Neutrophil Absolute 4.9 x103 1.4-7.0 Lymphocytes Absolute 1.7 x103 1.0-3.4 Monocyte Absolute 0.7 x103 0.2-1.0 Eosinophil Absolute 0.1 x103 0.0-0.5 Basophil Absolute 0.0 x103 0.0-0.2 Urinalysis W/ Micro (CX) 12/25/2007 Urine Color YELLOW Yellow Urine Appearance CLEAR Clear Urine Specific [place] 1.028 1.005-1.030 Urine Leukocytes NEGATIVE Negative Urine Nitrite NEGATIVE Negative Urine PH 5.5 5.0-8.0 Urine Protein 10 mg/dL Negative Urine Glucose NEGATIVE mg/dL Negative Urine Ketones 1+ (SMALL) mg/dL Negative Urine Urobilinogen NORMAL mg/dL Normal Or <1 Urine Bilirubin NEGATIVE Negative Urine Occult Blood NEGATIVE Negative WBC 1 /hpf 0-5 RBC 3 /hpf 0-3 Bacteria TRACE /hpf <2+ Epithelial Cells 1 /hpf Mucous Threads TRACE /lpf <1+ Laboratory test finding 12/25/2007 Microscopic, Reflex INDICATED Comprehensive Metabolic 09/11/2007 Glucose 82 mg/dL 70-100 30 BUN 26 mg/dL High 5-21 30 Creatinine, Serum 1.1 mg/dL 0.6-1.5 30 Sodium 140 mmol/L 136-146 30 Potassium 4.3 mmol/L 3.5-5.3 30 Chloride 105 mmol/L 98-110 30 Carbon Dioxide 24 mmol/L 20-32 30 Albumin 4.6 g/dL 3.5-4.7 30 Protein, Total 7.5 g/dL 6.4-8.3 30 Calcium 10.1 mg/dL 8.4-10.4 30 Alkaline Phosphatase 62 U/L 10-118 30 Sgot (Ast) 29 U/L 3-40 30 SGPT (Alt) 7 U/L 7-50 30 Bilirubin, Total 1.10 mg/dL 0.30-1.20 30 Lipid Profile 09/11/2007 Cholesterol, Total 200 mg/dL 120-200 30, 31 HDL Cholesterol 60 mg/dL 40-60 30 LDL Cholesterol, Calc. 129 mg/dL <130 30, 32 Triglycerides 57 mg/dL 30, 33 LDL/HDL Cholesterol 2.2 30, 34 Chol/HDL Cholesterol 3.3 30, 35 CBC 09/11/2007 WBC 6.0 x103 4.3-10.9 30 RBC 4.69 x106 Low 4.70-6.20 30 Hemoglobin 15.4 g/dL 13.0-17.0 30 Hematocrit 46.5 % 39.0-50.0 30 MCV 99.1 fl High 82.0-98.0 30 MCH 32.8 pg 27.5-33.5 30 MCHC 33.1 g/dL 30 RDW 13.8 % 11.5-14.5 30 Platelet Count 296 x103 130-400 30 MPV 10.3 fl 6.5-10.5 30 Segmented Neutrophils 57.6 % 44.0-74.0 30 Lymphocytes 28.6 % 15.0-45.0 30 Monocytes 11.3 % 2.0-13.0 30 Eosinophils 1.8 % 0.0-6.0 30 Basophils 0.7 % 0.0-2.0 30 Neutrophil Absolute 3.5 x103 1.4-7.0 30 Lymphocytes Absolute 1.7 x103 1.0-3.4 30 Monocyte Absolute 0.7 x103 0.2-1.0 30 Eosinophil Absolute 0.1 x103 0.0-0.5 30 Basophil Absolute 0.0 x103 0.0-0.2 30 Laboratory test finding 09/11/2007 PSA 0.3 ng/ml 0.0-4.0 30, 36 TSH (Thyrotropin) 1.660 uIU/ml 0.350-5.500 30 GFR (Calculated) >60 30, 37 Ua - Non Micro (a) 09/11/2007 Appearance CLEAR Color YELLOW Glucose, Urine (a/[facility]/CTX) NEG Bilirubin NEG Ketones 40mg/dL SP Grav 1.025 Blood NEG PH 5.0 Protein NEG Urobil 0.2 Nitrite NEG Leukocytes (a/[facility]rex) NEG Comprehensive Metabolic 05/14/2007 Glucose 92 mg/dL 70-100 30 BUN 24 mg/dL High 5-21 30 Creatinine, Serum 1.0 mg/dL 0.6-1.5 30 Sodium 141 mmol/L 136-146 30 Potassium 4.5 mmol/L 3.5-5.3 30 Chloride 104 mmol/L 98-110 30 Carbon Dioxide 27 mmol/L 20-32 30 Albumin 4.5 g/dL 3.5-4.7 30 Protein, Total 7.7 g/dL 6.4-8.2 30 Calcium 9.2 mg/dL 8.4-10.4 30 Alkaline Phosphatase 59 U/L 10-118 30 Sgot (Ast) 23 U/L 3-40 30 SGPT (Alt) 6 U/L Low 7-50 30 Bilirubin, Total 0.60 mg/dL 0.30-1.20 30 Lipid Profile 05/14/2007 Cholesterol, Total 218 mg/dL High 120-200 30, 38 HDL Cholesterol 51 mg/dL 40-60 30 LDL Cholesterol, Calc. 152 mg/dL <130 30, 39 Triglycerides 74 mg/dL 30, 40 LDL/HDL Cholesterol 3.0 30, 41 Chol/HDL Cholesterol 4.3 30, 42 CBC 05/14/2007 WBC 5.2 x103 4.3-10.9 30 RBC 4.91 x106 4.70-6.20 30 Hemoglobin 15.5 g/dL 13.0-17.0 30 Hematocrit 49.2 % 39.0-50.0 30 MCV 100.2 fl High 82.0-98.0 30 MCH 31.6 pg 27.5-33.5 30 MCHC 31.5 g/dL 30 RDW 13.8 % 11.5-14.5 30 Platelet Count 255 x103 130-400 30 MPV 10.2 fl 6.5-10.5 30 Segmented Neutrophils 56.2 % 44.0-74.0 30 Lymphocytes 29.5 % 15.0-45.0 30 Monocytes 11.2 % 2.0-13.0 30 Eosinophils 1.9 % 0.0-6.0 30 Basophils 1.2 % 0.0-2.0 30 Neutrophil Absolute 2.9 x103 1.4-7.0 30 Lymphocytes Absolute 1.5 x103 1.0-3.4 30 Monocyte Absolute 0.6 x103 0.2-1.0 30 Eosinophil Absolute 0.1 x103 0.0-0.5 30 Basophil Absolute 0.1 x103 0.0-0.2 30 Laboratory test finding 05/14/2007 PSA 0.4 ng/ml 0.0-4.0 30, 43 GFR (Calculated) >60 30, 44 Lipid Profile 08/14/2006 Cholesterol, Total 220 mg/dL High 120-200 45, 46 HDL Cholesterol 51 mg/dL 40-60 45 LDL Cholesterol, Calc. 155 mg/dL <130 45, 47 Triglycerides 69 mg/dL 45, 48 LDL/HDL Cholesterol 3.0 45, 49 Chol/HDL Cholesterol 4.3 45, 50 Comp Metabolic Panel 05/09/2006 One Over Creatinine 1.11 Anion Gap 6.0 mmol/L 2-11 51 Albumin/Globulin Ratio 1.5 1-3 Albumin 4.3 GM/DL 3.2-5.2 Alkaline Phosphatase 61 U/L 39-117 Alt (SGPT) 8 U/L Low 17-63 Ast (Sgot) 25 U/L 12-42 BUN 17 mg/dL 6-24 Calcium 9.9 mg/dL 8.7-10.2 Chloride 104 mmol/L 101-111 Co2 (Carbon Dioxide) 28.0 mmol/L 22-32 Globulin 2.8 GM/DL 2-4 Glucose 92 mg/dL 70-105 Potassium 4.3 mmol/L 3.5-5.0 Sodium 138 mmol/L 135-145 Bilirubin Total 0.9 mg/dL 0.4-1.5 Total Protein 7.1 GM/DL 6.2-8.1 BUN/Creatinine Ratio 18.9 8-20 Creatinine 0.9 mg/dL 0.5-1.4 Lipid Profile 05/09/2006 Cholesterol/HDL Ratio 5.34 AVERAGE High 1-4.97 (Trig/Chol/HDL) Cholesterol 235 mg/dL High Less Than 200 52 Triglyceride 116 mg/dL 40-200 High Density Lipoprotein 44 mg/dL 40-60 Low Density Lipoprotein 168 mg/dL High Less Than 100 53 CBC With Electronic Diff 05/09/2006 White Blood Count 5.0 CUMM 4.8-10.8 Abs Basophils 0 0-0.2 Abs Eosinophils 0.1 0-0.6 Absolute Neutrophil Count 3.0 1.5-7.7 Abs Lymphs 1.3 1.0-4.8 Abs Mononuclear 0.5 0-0.8 Basophil % 1.0 % 0-2 Hematocrit 46 % 42-52 Hemoglobin 15.8 g/dL 14.0-18.0 Eosinophil % 1.5 % 0-6 Gran % 60.9 % 38-83 Lymph % 26.9 % 20-45 Mean Corpuscular HGB Cone 34 g/dL 32-36 Mean Corpuscular Hemoglob 32 pg High 27-31 Mean Corpuscular Volume 94 um3 80-94 Mean Platelet Volume 7.7 um3 7.4-10.4 Mononuclear % 9.7 % High 1-9 Platelet Count 271 CUMM 150-450 Red Cell Count 4.94 CUMM 4.6-6.2 Redcell Distribution WDTH 13 % 10.5-15 Laboratory test finding 05/09/2006 PSA Screening 0.27 NG/ML 0.01-4.0 54 Comprehensive Metabolic 07/13/2004 Glucose 81 mg/dL 61-110 BUN 21 mg/dL 5-21 Creatinine, Serum 1.1 mg/dL 0.6-1.5 Sodium 138 mmol/L 136-146 Potassium 4.2 mmol/L 3.5-5.3 Chloride 105 mmol/L 98-107 Carbon Dioxide 26 mmol/L 20-32 Albumin 4.2 g/dL 3.5-4.7 Protein, Total 7.6 g/dL 6.4-8.2 Calcium 9.1 mg/dL 8.4-10.6 Alkaline Phosphatase 71 U/L 10-118 Sgot (Ast) 23 U/L 3-30 SGPT (Alt) 15 U/L 7-40 Bilirubin, Total 0.90 mg/dL 0.30-1.20 Lipid Profile 07/13/2004 Cholesterol, Total 198 mg/dL 120-200 55 HDL Cholesterol 53 mg/dL 40-60 LDL Cholesterol, Calc. 131 mg/dL <130 56 Triglycerides 69 mg/dL 57 LDL/HDL Cholesterol 2.5 58 .Chol/HDL Cholesterol 3.7 59 Laboratory test finding 07/13/2004 PSA 0.4 ng/ml 0.0-4.0 60 CBC 07/13/2004 WBC 3.8 x103 Low 4.3-10.9 RBC 4.84 x106 4.20-5.60 Hemoglobin 15.3 g/dL 13.0-17.0 Hematocrit 46.3 % 39.0-50.0 MCV 95.8 fl 82.0-98.0 MCH 31.6 pg 27.5-33.5 MCHC 33.0 g/dL 32.0-36.0 RDW 13.6 % 11.5-14.5 Platelet Count 258 x103 130-400 MPV 7.9 fl 6.5-10.5 Segmented Neutrophils 48.9 % 44.0-74.0 Lymphocytes 39.3 % 15.0-45.0 Monocytes 9.8 % 2.0-13.0 Eosinophils 1.6 % 0.0-6.0 Basophils 0.4 % 0.0-2.0 Neutrophil Absolute 1.9 x103 1.4-7.0 Lymphocytes Absolute 1.5 x103 1.0-3.4 Monocyte Absolute 0.4 x103 0.2-1.0 Eosinophil Absolute 0.1 x103 0.0-0.5 Basophil Absolute 0.0 x103 0.0-0.2 Urinalysis W/ Micro If Indicated 07/13/2004 Color YELLOW Yellow Appearance CLEAR Clear Specific [place] 1.020 1.005-1.030 Leukocytes NEGATIVE Negative Nitrite NEGATIVE Negative Protein NEGATIVE mg/dL Negative Glucose NEGATIVE mg/dL Negative Ketones NEGATIVE mg/dL Negative Urobilinogen NORMAL mg/dL Normal Or <1 Bilirubin NEGATIVE Negative Occult Blood NEGATIVE Negative Laboratory test finding 07/13/2004 GFR (Calculated) >60 61 Microscopic, Reflex NOT INDICATED Lipid Profile 07/10/2003 Triglycerides 90 mg/dL 23.0 - 253.0 Cholesterol, Total 214 mg/dL High 120.0 - 200.0 62 HDL Cholesterol 44 mg/dL 40.0 - 60.0 LDL Cholesterol, Calc. 152 mg/dL <130 63 LDL/HDL Cholesterol 3.5 64 Chol/HDL Cholesterol 4.9 65 Ua - Non Micro (Fma New) 02/18/2003 Appearance CLEAR Color YELLOW Glucose NEG Bilirubin NEG Ketones 15MG/dL SP Grav >1.030 Blood NEG PH 5.5 Protein NEG Urobil 0.2 Nitrite NEG Leukocytes NEG Laboratory test finding 02/11/2003 PSA 0.5 ng/ml 0 - 4 66 CBC 02/11/2003 WBC 4.0 x10*3 Low 4.3 - 10.9 RBC 4.90 x10*6 4.2 - 5.6 Hemoglobin 15.4 g/dL 13.0 - 17.0 Hematocrit 46.8 % 39.0 - 50.0 MCV 95.4 fl 82.0 - 98.0 MCH 31.4 pg 27.5 - 33.5 MCHC 32.8 g/dL 32.0 - 36.0 RDW 13.4 % 11.5 - 14.5 Platelet Count 241 x10*3 130.0 - 400.0 MPV 8.1 fl 6.5 - 10.5 Segmented Neutrophils 48.0 % 44.0 - 74.0 Lymphocytes 36.2 % 15.0 - 45.0 Monocytes 12.9 % 2.0 - 13.0 Eosinophils 2.5 % 0.0 - 6.0 Basophils 0.4 % 0.0 - 2.0 Neutrophil Absolute 1.9 x10*3 1.4 - 7.0 Lymphocytes Absolute 1.4 x10*3 1.0 - 3.4 Monocyte Absolute 0.5 x10*3 0.2 - 1.0 Eosinophil Absolute 0.1 x10*3 0.0 - 0.5 Basophil Absolute 0.0 x10*3 0.0 - 0.2 Lipid Profile 02/11/2003 Triglycerides 72 mg/dL 23.0 - 253.0 Cholesterol, Total 247 mg/dL High 120.0 - 200.0 67 HDL Cholesterol 50 mg/dL 40.0 - 60.0 LDL Cholesterol, Calc. 183 mg/dL <130 68 LDL/HDL Cholesterol 3.7 69 Chol/HDL Cholesterol 4.9 70 Comprehensive Metabolic 02/11/2003 Glucose 87 mg/dL 61.0 - 110.0 BUN 24 mg/dL High 5.0 - 21.0 Creatinine, Serum 1.0 mg/dL 0.6 - 1.5 Sodium 142 mmol/L 135.0 - 146.0 Potassium 5.0 mmol/L 3.5 - 5.3 Chloride 104 mmol/L 98.0 - 108.0 Carbon Dioxide 29 mmol/L 23.0 - 33.0 Albumin 4.7 g/dL High 3.8 - 4.6 Protein, Total 8.2 g/dL High 6.2 - 8.0 Calcium 9.8 mg/dL 8.3 - 10.3 Alkaline Phosphatase 74 U/L 45.0 - 120.0 Sgot (Ast) 29 U/L 9.0 - 43.0 SGPT (Alt) 22 U/L 11.0 - 51.0 Bilirubin, Total 0.80 mg/dL 0.2 - 1.3 Ua - Non Micro (Fma New) 08/24/2001 Appearance CLEAR YELLOW Glucose NEG Bilirubin NEG Ketones TRACE SP Grav 1.020 Blood NEG PH 6.5 Protein NEG Urobil 1.0 Nitrite NEG Leukocytes NEG Lipid Profile 08/22/2001 Triglycerides 89 mg/dL 23.0 - 253.0 Cholesterol, Total 211 mg/dL High 120.0 - 200.0 71 HDL Cholesterol 53 mg/dL 35.0 - 9999.0 LDL Cholesterol 140 mg/dL <130 72 LDL/HDL Cholesterol 2.6 73 Chol/HDL Cholesterol 4.0 74 Laboratory test finding 08/22/2001 PSA 0.6 ng/ml 0 - 4 75 WBC 4.5 x10*3 4.3 - 10.9 RBC 4.88 x10*6 4.2 - 5.6 Hemoglobin 15.3 g/dL 13.0 - 17.0 Hematocrit 46.6 % 39.0 - 50.0 MCV 95.4 fl 82.0 - 98.0 MCH 31.5 pg 27.5 - 33.5 MCHC 32.9 g/dL 32.0 - 36.0 RDW 13.6 % 11.5 - 14.5 Platelet Count 251 x10*3 130.0 - 400.0 MPV 8.2 fl 6.5 - 10.5 Segmented Neutrophils 56.2 % 44.0 - 74.0 Lymphocytes 31.3 % 15.0 - 45.0 Monocytes 10.2 % 2.0 - 13.0 Eosinophils 1.6 % 0.0 - 6.0 Basophils 0.7 % 0.0 - 2.0 Neutrophil Absolute 2.5 x10*3 1.4 - 7.0 Lymphocytes Absolute 1.4 x10*3 1.0 - 3.4 Monocyte Absolute 0.5 x10*3 0.2 - 1.0 Eosinophil Absolute 0.1 x10*3 0.0 - 0.5 Basophil Absolute 0.0 x10*3 0.0 - 0.2 Comprehensive Metabolic 08/22/2001 Glucose 87 mg/dL 61.0 - 113.0 BUN 21 mg/dL 5.0 - 21.0 Creatinine, Serum 1.0 mg/dL 0.6 - 1.5 Sodium 139 mmol/L 135.0 - 146.0 Potassium 4.3 mmol/L 3.6 - 5.0 Chloride 103 mmol/L 98.0 - 108.0 Carbon Dioxide 28 mmol/L 23.0 - 33.0 Albumin 4.2 g/dL 3.8 - 4.6 Protein, Total 7.4 g/dL 6.2 - 8.0 Calcium 9.2 mg/dL 8.3 - 10.3 76 Alkaline Phosphatase 64 U/L 45.0 - 120.0 Sgot (Ast) 27 U/L 9.0 - 43.0 SGPT (Alt) 11 U/L 11.0 - 51.0 Bilirubin, Total 0.80 mg/dL 0.2 - 1.3 Comp+ ([facility]) 07/01/1999 Glucose 82 mg/dL 61-113 BUN 18 mg/dL 5-21 Creatinine 0.9 mg/dL 0.6-1.5 Sodium 139 mmol/L 135-146 Potassium 4.3 mmol/L 3.6-5.0 Chloride 102 mmol/L 98-108 Co2 26 mmol/L 23-33 Albumin 4.3 g/dL 3.8-4.6 Total Protein 7.8 g/dL 6.2-8.0 Calcium 9.7 mg/dL 8.7-10.3 Alkaline Phosphatase 69 U/L 45-120 Ast (Sgot) 24 U/L 9-43 Alt (SGPT) 16 U/L 11-51 Bilirubin, Total 1.10 mg/dL 0.2-1.30 Bilirubin, Direct - mg/dL Bilirubin, Indirect - mg/dL Lipid Profile ([facility]) 07/01/1999 Cholesterol 222 mg/dL High 120-200 HDL-Chol 60 mg/dL >35 LDL, Direct 146 mg/dL <130 Triglyceride 81 mg/dL 23-253 LDL/HDL Cholesterol Ratio 2.4 See Detail 77 Cholesterol / HDL Ratio 3.7 See Detail 78 CBC Electronic ([facility]) 07/01/1999 WBC 4.2 x1000 Low 4.3-10.9 RBC 4.96 xMILLION 4.20-5.60 Hemoglobin 15.7 g/dL 13.0-17.0 Hematocrit 46.8 % 39-50 Mean Corpuscular Vol 94.4 FL 82.0-98.0 Mean Corpuscular Hemaglobin 31.7 pg 27.5-33.5 Mean Corpuscular Hemo Concen 33.5 g/dL 32.0-36.0 RDW 12.7 % 11.5-14.5 Platelets 241 x1000 130-400 Mean Platelet Volume 7.8 FL 6.5-10.5 Neutrophils 51.6 % 44.0-74.0 Band 0.0 % 0.0-4.0 Lymphocytes 33.2 % 15-45 Monocytes 11.6 % 2.0-13.0 Eosinophil 2.3 % 0.0-6.0 Basophil% 1.3 % 0.0-2.0 Abs Neutrophils 2.2 x1000 1.4-7.0 Abs Lymphs 1.4 X1000 1.0-3.4 Abs Mononuclear 0.5 X1000 0.2-1.0 Abs Eosinophils 0.1 X1000 0.0-0.5 Abs Basophils 0.1 X1000 0.0-0.20 Morphology - Laboratory test finding 07/01/1999 PSA 0.7 NG/ML 0.0-4.0 Ua - Non Micro (Fma New) 06/22/1999 Appearance LT YELLOW CLEAR SP Grav 1.020 Esterase - Nitrite - pH 6.5 Protein - Glucose - Ketones - Urobil - Bilirubin - Blood - 1 RESULTS VERIFIED BY REPEAT ANALYSIS 2 RESULTS VERIFIED BY REPEAT ANALYSIS 3 RESULTS VERIFIED BY REPEAT ANALYSIS 4 LEFT 2ND TOE 5 RUN DATE: 04/20/14 [facility] LAB LIVE PAGE 1 RUN TIME: [address] [place], [place] [address] Specimen Inquiry Name: CRISTÓBAL MEIER : [address]: Marin Cohn Acct: [id number] Unit: [id number] AGE: 69 Location: OR Re04/18/14 SEX: M Status: REG SDC SPEC: [id number] RIKKI: 04/18/14-[address]: Marin Cohn DPM REQ: [id number] RECD: 04/18/14-1051 STATUS: COMP OTHR DR: Eddie Lauren MD _ SOURCE: TOE SPDESC:LT SECOND ORDERED: Culture Stain QUERIES: Specimen Description LEFT SECOPBD TOE Procedure Result Verified Site Wound/Misc Gram Stain Final 04/18/14- 1353 ML 1+ Neutrophils 1+ Epithelial Cells No Organisms Seen Wound/Misc Culture Final 04/20/14- 1020 ML No Growth Day 2 END OF REPORT * ML=Testing performed at Main Lab DEPARTMENT OF PATHOLOGY, [facility] [address] [place], [place] [address] Ashutosh Pineda M.D. Director [facility] # [id number] RUN DATE: 04/22/14 [facility] LAB LIVE PAGE 1 RUN TIME: [address] [facility] [address] [place], [place] [address] Specimen Inquiry Name: CRISTÓBAL MEIER : [address]: Marin Cohn Acct: [id number] Unit: [id number] AGE: 69 Location: OR Re04/18/14 SEX: M Status: REG SDC SPEC: [id number] RIKKI: 04/18/14-[address] [facility] [address]: Marin Cohn [facility] REQ: [id number] RECD: 04/18/14-1051 STATUS: DIVINA HAMMER DR: Eddie Lauren MD _ SOURCE: WOUND SPDESC:LT SECOND ORDERED: Anaerobic Cult COMMENTS: LEFT 2ND TOE Procedure Result Verified Site Anaerobic Culture Final 04/22/14- 0848 ML No Growth Day 4 END OF REPORT * ML=Testing performed at Main Lab DEPARTMENT OF PATHOLOGY, [address] [place] [address] Ashutosh Pineda M.D. Director [facility] # [id number] 7 Anion gap measurement may be of limited value in the presence of any alkalosis, especially in a combined acid base disorder. . 8 A metabolite of Naproxen, O-desmethylnaproxen, has been shown to interfere with the Jendrassik-Aleksander method for measuring total bilirubin. Samples from patients who have taken Naproxen have shown spurious elevation in total bilirubin levels. 9 Because ethnic data is not always readily [...] 15-29 5 Kidney failure <15 (or dialysis) 10 New Reference Range and Interpretation effective 11/30/2001 TnI (ng/ml) INTERPRETATION Less Than 0.06 ng/mL NOT SUPPORTIVE OF DIAGNOSIS OF [place] 0.06 - 0.50 ng/ml INDETERMINATE: SUGGEST SERIAL STUDIES IF CLINICALLY INDICATED. Greater than 0.5 ng/mL CONSISTENT WITH DIAGNOSIS OF [place] . 11 FASTING; 2SST,1LAV 12 CHOL/HDL Risk Ratio Levels MALE FEMALE 1/2 X Average 3.4 3.3 Average 5.0 4.4 2 X Average 9.5 7.0 3 X Average 24.0 11.0 13 Optimal under 100 mg/dl Near or above Optimal 100 - 129 mg/dl Borderline High 130 - 159 mg/dl High 160 - 189 mg/dl Very High above 190 mg/dl 14 LDL/HDL Risk Ratio Levels MALE FEMALE 1/2 X Average 1.0 1.5 Average 3.6 3.2 2 X Average 6.3 5.0 3 X Average 8.0 6.1 15 . Serum PSA results should be used only in conjunction with information available from the clinical evaluation of the patient and other diagnostic procedures. Values obtained with different assay methods or kits cannot be used interchangeably. Results obtained using Mindie ICMA methodology. 16 >59 mL/min/1.73m2 17 >59 mL/min/1.73m2 Note: Persistent reduction for 3 months or more in an eGFR <60 mL/min/1.73m2 defines CKD. Patients with eGFR values >=60 mL/min/1.73m2 may also have CKD if evidence of persistent proteinuria is present. Additional information may be found at [email or web address] 2SST,2LAV 19 . Abnormal BNP values are associated with increased mortality and are independent of age, Troponin-I and the presence or absence of heart failure, renal insufficiency and ST segment deviation. The adjusted odds ratios for at 10 months at a median of 40 hours after the onset of ischemic symptoms are: Quartile Plasma BNP (pg/ml) Odds ratio Q-1 5.0 to 43.6 Reference group Q-2 43.7 to 81.2 3.8 (95% C.I., 1.1 to 3.0) Q-3 81.3 to 137.8 4.0 (95% C.I., 1.2 to 13.7) Q-4 137.9 to 1456.6 8.8 (95% C.I., 1.7 to 19.7) BNP is also associated with the risk of recurrent or new myocardial infarction, and/or new or worsening congestive heart failure. N. Engl. J. Med., 2001; 345:1014-21 20 >59 mL/min/1.73m2 21 >59 mL/min/1.73m2 Note: Persistent reduction for 3 months or more in an eGFR <60 mL/min/1.73m2 defines CKD. Patients with eGFR values >=60 mL/min/1.73m2 may also have CKD if evidence of persistent proteinuria is present. Additional information may be found at [email or web address] FASTING; 1 purple top tube; 1 sst 23 CHOL/HDL Risk Ratio Levels MALE FEMALE 1/2 X Average 3.4 3.3 Average 5.0 4.4 2 X Average 9.5 7.0 3 X Average 24.0 11.0 24 Optimal under 100 mg/dl Near or above Optimal 100 - 129 mg/dl Borderline High 130 - 159 mg/dl High 160 - 189 mg/dl Very High above 190 mg/dl 25 LDL/HDL Risk Ratio Levels MALE FEMALE 1/2 X Average 1.0 1.5 Average 3.6 3.2 2 X Average 6.3 5.0 3 X Average 8.0 6.1 26 . Serum PSA results should be used only in conjunction with information available from the clinical evaluation of the patient and other diagnostic procedures. Values obtained with different assay methods or kits cannot be used interchangeably. Results obtained using [employer] ICMA methodology. 27 mL/min/1.73m2 . Normal Function or Mild Renal Disease, if clinically at risk: >or=60 Moderately decreased: 30 - 59 Severely decreased: 15 - 29 Renal Failure: <15 . Please note that the MDRD equation requires an additional adjustment for -Americans (multiply the GFR result by 1.210). . Glomerular Filtration Rate (GFR) is estimated based on the MDRD equation, which assumes a steady state for creatinine (Anahi Int Med 139/2 137-149, 2003), as recommended by the National Kidney Disease Education Program in conjunction with the National Institutes of Health and the National Kidney Foundation. . Clinical conditions in which it may be necessary to measure GFR by using clearance methods include extremes of age and body size, severe malnutrition or obesity, diseases of skeletal muscle, paraplegia or quadriplegia, vegetarian diet, rapidly changing kidney function, and calculation of the dose of potentially toxic drugs that are excreted by the kidneys. 28 . 29 INTERNATIONAL NORMALIZED RATIO(INR) INDICATIONS INR RANGE PATIENTS NOT ON ANTICOAGULANT THERAPY * DEEP VENOUS THROMBOSIS 2.0-3.0 PULMONARY EMBOLISM 2.0-3.0 ATRIAL FIBRILLATION 2.0-3.0 PROPHYLAXIS: 2.0-3.0 HIGH-RISK SURGERY TISSUE HEART VALVES ATRIAL FIBRILLATION ACUTE MYOCARDIAL INFARCTION VALVULAR HEART DISEASE MECHANICAL PROSTHETIC VALVE 2.5-3.5 * USE OF INR VALUES SHOULD BE LIMITED TO PATIENTS WHO ARE ON STABLE ORAL ANTICOAGULANT THERAPY. AN INR ABOVE 5.0-5.5 APPEARS TO BE ASSOCIATED WITH AN UNACCEPTABLY HIGH RISK OF BLEEDING. 30 FASTING; 1 SST; 1 PURPLE TOP TUBE 31 Cholesterol Risk Levels (NIH) Recommended: under 200 mg/dl Borderline : 200-239 mg/dl High Risk : Above 240 mg/dl 32 The National Cholesterol Education Program recommends the following ranges for LDL Cholesterol: Optimal under 100 mg/dl Near or above Optimal 100 - 129 mg/dl Borderline High 130 - 159 mg/dl High 160 - 189 mg/dl Very High above 190 mg/dl 33 Triglyceride Risk Levels: Normal : <150 mg/dl Borderline : 150-199 mg/dl High : 200-499 mg/dl Very High : >500 mg/dl 34 LDL/HDL Risk Ratio Levels MALE FEMALE 1/2 X Average 1.00 1.47 Average 3.55 3.22 2 X Average 6.25 5.03 3 X Average 7.99 6.14 35 CHOL/HDL Risk Ratio Levels MALE FEMALE 1/2 X Average 3.4 3.3 Average 5.0 4.4 2 X Average 9.5 7.0 3 X Average 24.0 11.0 36 . Serum PSA results should be used only in conjunction with information available from the clinical evaluation of the patient and other diagnostic procedures. Values obtained with different assay methods or kits cannot be used interchangeably. Results obtained using [employer] ICMA methodology. 37 mL/min/1.73m2 . Normal Function or Mild Renal Disease, if clinically at risk: >or=60 Moderately decreased: 30 - 59 Severely decreased: 15 - 29 Renal Failure: <15 . Please note that the MDRD equation requires an additional adjustment for -Americans (multiply the GFR result by 1.210). . Glomerular Filtration Rate (GFR) is estimated based on the MDRD equation, which assumes a steady state for creatinine (Anahi Int Med 139/2 137-149, 2002), as recommended by the National Kidney Disease Education Program in conjunction with the National Institutes of Health and the National Kidney Foundation. . Clinical conditions in which it may be necessary to measure GFR by using clearance methods include extremes of age and body size, severe malnutrition or obesity, diseases of skeletal muscle, paraplegia or quadriplegia, vegetarian diet, rapidly changing kidney function, and calculation of the dose of potentially toxic drugs that are excreted by the kidneys. 38 Cholesterol Risk Levels (NIH) Recommended: under 200 mg/dl Borderline : 200-239 mg/dl High Risk : Above 240 mg/dl 39 The National Cholesterol Education Program recommends the following ranges for LDL Cholesterol: Optimal under 100 mg/dl Near or above Optimal 100 - 129 mg/dl Borderline High 130 - 159 mg/dl High 160 - 189 mg/dl Very High above 190 mg/dl 40 Triglyceride Risk Levels: Normal : <150 mg/dl Borderline : 150-199 mg/dl High : 200-499 mg/dl Very High : >500 mg/dl 41 LDL/HDL Risk Ratio Levels MALE FEMALE 1/2 X Average 1.00 1.47 Average 3.55 3.22 2 X Average 6.25 5.03 3 X Average 7.99 6.14 42 CHOL/HDL Risk Ratio Levels MALE FEMALE 1/2 X Average 3.4 3.3 Average 5.0 4.4 2 X Average 9.5 7.0 3 X Average 24.0 11.0 43 . Serum PSA results should be used only in conjunction with information available from the clinical evaluation of the patient and other diagnostic procedures. Values obtained with different assay methods or kits cannot be used interchangeably. Results obtained using [employer] ICMA methodology. 44 mL/min/1.73m2 . Normal Function or Mild Renal Disease, if clinically at risk: >or=60 Moderately decreased: 30 - 59 Severely decreased: 15 - 29 Renal Failure: <15 . Please note that the MDRD equation requires an additional adjustment for -Americans (multiply the GFR result by 1.210). . Glomerular Filtration Rate (GFR) is estimated based on the MDRD equation, which assumes a steady state for creatinine (Anahi Int Med 139/2 137-149, 2002), as recommended by the National Kidney Disease Education Program in conjunction with the National Institutes of Health and the National Kidney Foundation. . Clinical conditions in which it may be necessary to measure GFR by using clearance methods include extremes of age and body size, severe malnutrition or obesity, diseases of skeletal muscle, paraplegia or quadriplegia, vegetarian diet, rapidly changing kidney function, and calculation of the dose of potentially toxic drugs that are excreted by the kidneys. 45 1 SST 46 Cholesterol Risk Levels (NIH) Recommended: under 200 mg/dl Borderline : 200-239 mg/dl High Risk : Above 240 mg/dl 47 The National Cholesterol Education Program recommends the following ranges for LDL Cholesterol: Optimal under 100 mg/dl Near or above Optimal 100 - 129 mg/dl Borderline High 130 - 159 mg/dl High 160 - 189 mg/dl Very High above 190 mg/dl 48 Triglyceride Risk Levels: Normal : <150 mg/dl Borderline : 150-199 mg/dl High : 200-499 mg/dl Very High : >500 mg/dl 49 LDL/HDL Risk Ratio Levels MALE FEMALE 1/2 X Average 1.00 1.47 Average 3.55 3.22 2 X Average 6.25 5.03 3 X Average 7.99 6.14 50 CHOL/HDL Risk Ratio Levels MALE FEMALE 1/2 X Average 3.4 3.3 Average 5.0 4.4 2 X Average 9.5 7.0 3 X Average 24.0 11.0 51 Anion gap measurement may be of limited value in the presence of any alkalosis, especially in a combined acid base disorder. . 52 Classification: Borderline High . 53 CALCULATED LDL APPROXIMATES THE VALUE OF A DIRECT LDL MEASUREMENT. Classification: High . 54 * SERUM LEVELS OF PSA MEASURED USING THE SNOW [employer] ACCESS HYBRITECH IMMUNOASSAY SHOULD NOT BE INTERPRETED ABSOLUTE EVIDENCE OF THE PRESENCE OR ABSENCE OF DISEASE. THE PSA VALUE SHOULD BE USED IN CONJUNCTION WITH OTHER PERTINENT CLINICAL DIAGNOSTIC PROCEDURES. A PSA value in the range of 0.1 to 0.6 ng/ml is indeterminate if being used as an indicator of recurrent or residual disease. . 55 Cholesterol Risk Levels (NIH) Recommended: under 200 mg/dl Borderline : 200-239 mg/dl High Risk : Above 240 mg/dl . 56 The National Cholesterol Education Program recommends the following ranges for LDL Cholesterol: Optimal under 100 mg/dl Near or above Optimal 100 - 129 mg/dl Borderline High 130 - 159 mg/dl High 160 - 189 mg/dl Very High above 190 mg/dl . 57 Triglyceride Risk Levels: Normal : <150 mg/dl Borderline : 150-199 mg/dl High : 200-499 mg/dl Very High : >500 mg/dl . 58 LDL/HDL Risk Ratio Levels MALE FEMALE 1/2 X Average 1.00 1.47 Average 3.55 3.22 2 X Average 6.25 5.03 3 X Average 7.99 6.14 . 59 CHOL/HDL Risk Ratio Levels MALE FEMALE 1/2 X Average 3.4 3.3 Average 5.0 4.4 2 X Average 9.5 7.0 3 X Average 24.0 11.0 . 60 . Serum PSA results should be used only in conjunction with information available from the clinical evaluation of the patient and other diagnostic procedures. Values obtained with different assay methods or kits cannot be used interchangeably. Results obtained using [employer] ICMA methodology. . 61 mL/min/1.73m2 . Normal Function or Mild Renal Disease, if clinically at risk: >or=60 Moderately decreased: 30 - 59 Severely decreased: 15 - 29 Renal Failure: <15 . Please note that the MDRD equation requires an additional adjustment for -Americans (multiply the GFR result by 1.210). . Glomerular Filtration Rate (GFR) is estimated based on the MDRD equation, which assumes a steady state for creatinine (Anahi Int Med 139/2 137-149, 2003), as recommended by the National Kidney Disease Education Program in conjunction with the National Institutes of Health and the National Kidney Foundation. . Clinical conditions in which it may be necessary to measure GFR by using clearance methods include extremes of age and body size, severe malnutrition or obesity, diseases of skeletal muscle, paraplegia or quadriplegia, vegetarian diet, rapidly changing kidney function, and calculation of the dose of potentially toxic drugs that are excreted by the kidneys. . 62 Cholesterol Risk Levels (NIH) Recommended: under 200 mg/dl Borderline : 200-239 mg/dl High Risk : Above 240 mg/dl . 63 LDL Cholesterol Risk Levels (NIH) Recommended: under 130 mg/dl Borderline: 131 - 159 mg/dl High Risk: above 160 mg/dl . 64 LDL/HDL Risk Ratio Levels MALE FEMALE 1/2 X Average 1.00 1.47 Average 3.55 3.22 2 X Average 6.25 5.03 3 X Average 7.99 6.14 . 65 CHOL/HDL Risk Ratio Levels MALE FEMALE 1/2 X Average 3.4 3.3 Average 5.0 4.4 2 X Average 9.5 7.0 3 X Average 24.0 11.0 . 66 . Results obtained using [employer] MEIA methodology. Serum PSA results should be used only in conjunction with information available from the clinical evaluation of the patient and other diagnostic procedures. Values obtained with different assay methods or kits cannot be used interchangeably. . 67 Cholesterol Risk Levels (NIH) Recommended: under 200 mg/dl Borderline : 200-239 mg/dl High Risk : Above 240 mg/dl . 68 LDL Cholesterol Risk Levels (NIH) Recommended: under 130 mg/dl Borderline: 131 - 159 mg/dl High Risk: above 160 mg/dl . 69 LDL/HDL Risk Ratio Levels MALE FEMALE 1/2 X Average 1.00 1.47 Average 3.55 3.22 2 X Average 6.25 5.03 3 X Average 7.99 6.14 . 70 CHOL/HDL Risk Ratio Levels MALE FEMALE 1/2 X Average 3.4 3.3 Average 5.0 4.4 2 X Average 9.5 7.0 3 X Average 24.0 11.0 . 71 Cholesterol Risk Levels (NIH) Recommended: under 200 mg/dl Borderline : 200-239 mg/dl High Risk : Above 240 mg/dl . 72 LDL Cholesterol Risk Levels (NIH) Recommended: under 130 mg/dl Borderline: 131 - 159 mg/dl High Risk: above 160 mg/dl . 73 LDL/HDL Risk Ratio Levels MALE FEMALE 1/2 X Average 1.00 1.47 Average 3.55 3.22 2 X Average 6.25 5.03 3 X Average 7.99 6.14 . 74 CHOL/HDL Risk Ratio Levels MALE FEMALE 1/2 X Average 3.4 3.3 Average 5.0 4.4 2 X Average 9.5 7.0 3 X Average 24.0 11.0 . 75 . RESULTS OBTAINED USING [employer] MEIA METHODOLOGY. SERUM PSA RESULTS SHOULD BE USED ONLY IN CONJUNCTION WITH INFORMATION AVAILABLE FROM THE CLINICAL EVALUATION OF THE PATIENT AND OTHER DIAGNOSTIC PROCEDURES. 76 Effective June Please Note CHANGE IN REFERENCE RANGE. . 77 LDL/HDL RISK RATIO LEVELS MALE FEMALE 1/2 X AVERAGE 1.0 1.47 AVERAGE 3.55 3.22 2 X AVERAGE 6.25 5.03 3 X AVERAGE 7.99 6.14 78 CHOL/HDL RISK RATIO LEVELS MALE FEMALE 1/2 X AVERAGE 3.4 3.3 AVERAGE 5.0 4.4 2 X AVERAGE 9.5 7.0 3 X AVERAGE 24.0 11.0 Procedures Date CPT Code Description Status 09/29/2015 95497 Electrocardiogram Complete Completed 10/20/2010 54085 Electrocardiogram Complete Completed 12/25/2007 97475 Electrocardiogram Complete Completed 03/29/2006 Colonoscopy Completed 07/13/2004 13416 Electrocardiogram Complete Completed 08/24/2001 72587 Electrocardiogram Complete Completed Encounters Type Date Location Provider CPT E/M Dx Office Visit 10/24/2017 9:20a [facility] Eddie Lauren M.D. 40415 G20 M84.322G Office Visit 04/18/2017 9:20a [facility] Eddie Lauren M.D. 72258 G20 Office Visit 11/22/2016 9:00a [facility] Office Eddie Lauren M.D. 74871 G20 R53.83 E78.5 E55.9 Office Visit 07/19/2016 1:20p [facility] Eddie Lauren M.D. 31479 G20 N40.0 R06.82 Office Visit 04/12/2016 11:20a [facility] Eddie Lauren M.D. 83545 Z23 G20 Z12.5 N40.0 Office Visit 01/12/2016 2:20p [facility] Office Eddie Lauren M.D. 63321 G20 F52.21 Office Visit 10/27/2015 1:20p [facility] Eddie Lauren M.D. 62350 M25.551 G20 R06.82 Z01.818 Office Visit 09/29/2015 11:20a [facility] Eddie Lauren M.D. 97097 G20 Z01.818 Office Visit 06/22/2015 1:20p [facility] Eddie Lauren M.D. 59276 M25.551 Office Visit 05/25/2015 1:40p [facility] Eddie Lauren M.D. 16107 M25.551 R53.83 Office Visit 09/23/2014 1:20p [facility] Eddie Lauren M.D. 11941 718.31 332.0 V72.83 Office Visit 07/01/2014 2:10p [facility] Eddie Lauren M.D. 76354 V58.32 883.0 Office Visit 06/27/2014 1:20p [facility] Eddie Lauren M.D. 69366 V58.32 883.0 Office Visit 06/03/2014 9:00a [facility] Eddie Lauren M.D. 67365 332.0 831.00 272.4 786.05 Office Visit 04/30/2014 1:30p [facility] Marquita AmayaBRITTNEY 14078 831.00 Office Visit 03/11/2014 3:00p [facility] Eddie Lauren M.D. 48591 782.1 Office Visit 03/05/2014 2:40p [facility] Eddie Lauren M.D. 19046 719.47 332.0 V72.83 Office Visit 11/05/2013 11:10a [facility] Eddie Lauren M.D. 09988 332.0 V43.64 724.5 Office Visit 07/30/2013 1:20p [facility] Eddie Lauren M.D. 19386 332.0 V43.64 Office Visit 05/28/2013 1:20p [facility] Eddie Lauren M.D. 08593 V43.64 332.0 Office Visit 04/25/2013 2:00p [facility] Eddie Lauren M.D. 89928 719.45 332.0 V72.83 Office Visit 03/12/2013 1:20p [facility] Eddie Lauren M.D. 97509 332.0 719.45 724.5 Office Visit 12/25/2012 11:10a [facility] Rubén Noe M.D. 98140 786.05 332.0 Office Visit 10/30/2012 3:10p [facility] Eddie Lauren M.D. 90474 332.0 724.5 V49.9 Office Visit 05/02/2012 4:00p [facility] Eddie Lauren M.D. 23663 600.00 332.0 724.5 Office Visit 08/02/2011 3:10p [facility] Eddie Lauren M.D. 56206 780.2 719.45 Office Visit 10/20/2010 10:20a [facility] Eddie Lauren M.D. 57034 600.20 V70.0 332.0 Office Visit 06/10/2010 3:00p [facility] Ad[facility] Aquino [facility] 78498 465.9 Office Visit 05/14/2010 3:00p [facility] Eddie Lauren M.D. 70101 786.05 Office Visit 06/02/2009 10:00a [facility] Eddie Lauren M.D. 62172 726.19 Office Visit 2009 3:20p [facility] Eddie Lauren M.D. 17634 V03.82 V70.0 600.20 Office Visit 02/26/2009 9:10a [facility] Eddie Lauren M.D. 79923 466.0 Office Visit 05/20/2008 9:40a [facility] Eddie Lauren M.D. 97978 726.19 Office Visit 01/22/2008 2:20p [facility] Eddie Lauren M.D. 04533 873.42 V58.32 Office Visit 01/16/2008 7:00p [facility] Eddie Lauren M.D. 15387 332.0 873.42 Office Visit 12/25/2007 1:40p [facility] Eddie Lauren M.D. 08212 332.0 V72.83 Office Visit 10/25/2007 11:00a [facility] Eddie Lauren M.D. 77940 332.0 Office Visit 09/11/2007 10:20a [facility] Eddie Lauren M.D. 98059 V70.0 272.4 V58.69 V76.44 Office Visit 05/04/2007 9:20a [facility] Eddie Lauren M.D. 09003 719.46 780.52 Office Visit 10/02/2006 11:20a [facility] Eddie Lauren M.D. 11323 332.0 Office Visit 06/07/2006 8:00a [facility] Eddie Lauren M.D. 68079 723.1 Office Visit 05/09/2006 8:10a [facility] Eddie Lauren M.D. 79242 V70.0 V06.5 Office Visit 07/13/2004 8:10a [facility] Eddie Lauren M.D. 46970 V70.0 272.4 Office Visit 06/30/2003 2:20p [facility] Baldo Sotomayor M.D. 36825 110.5 Office Visit 02/18/2003 3:20p [facility] Eddie Lauren M.D. 10621 V70.0 Office Visit 04/08/2002 10:00a [facility] dEdie Lauren M.D. 70932 719.47 Office Visit 08/24/2001 3:20p [facility] Eddie Lauren M.D. 35984 Office Visit 05/09/2000 1:40p [facility] Office Eddie Lauren M.D. 72720 Plan of Care Future Appointment(s):01/23/2018 9:20 am - Eddie Lauren M.D. at [facility] Cqkhme9511/11/2017 - Eddie Higgins MDZ01.818 Encounter for other preprocedural audeodicpdcI71 Parkinson's hwcvdjkH12.322G Stress fracture, left humerus, subs for fx w delay healAllComments:~B_~U_Medication Management~b_ ~u_ Patient Understands medications he's taking? Yes No Are there Barriers to Adherence? Yes No Has the patient been asked about herbal supplements and therapies, and OTC meds? Yes No
--- OUTSIDE RECORDS SUMMARY | 2017-11-15 10:02 | XMS REPORT ---
:1945 External Reference #:[id number] Author Organization [employer] Address [address] [place] [address] [place] [address] Phone [phone] Care Team Providers Name Role Phone Eddie Lauren MD Primary Care Physician Unavailable Payers Type Date Identification Numbers Payment Provider Subscriber Medicare Primary Policy Number: [id number] Medicare Cristóbal Meier PayID: [id number] [address] [place] [address] Medigap Part B Expires: 2017 Policy Number: [id number] Medicare Cristóbaljoby Castilloni PayID: [id number] [address] [place] [address] Medigap Part B Policy Number: [id number] [facility] Cristóbal Meier PayID: [id number] [address] [place] [address] Workers Compensation Expires: Policy Number: [place] Domenica Camarena 2010 [id number] Exchange Renea Onset: 2011 PayID: [id number] [address] [place] [address] Problems Date Description Provider Status Onset: 06/28/2013 [...] + D / Active daily Unknown 0000 [place] 11/15/ Hx Tablets 5-325mg 70tabs 1-2 tablets M16.11 2015 - by mouth Bordoni, 02/17/ every 4-6 STONE LATHE OPERATOR 2016 hours as needed for pain. Coumadin 11/15/ Hx Tablets 2mg 45tabs 1 by mouth M16.11 2015 - daily post Bordoni, 02/17/ operatively STONE LATHE OPERATOR 2015 or as directed by vns/. do not take this medication prior to surgery [place] 09/08/ Hx Tablets 5-325mg 40tabs 1-2 tablets 2015 - by mouth Bordoni, 02/17/ every 4-6 STONE LATHE OPERATOR 2016 hours as needed for pain. [place] 09/23/ Hx Tablets 5-325mg 50tabs 1-2 by mouth 831.01 Ramon 2014 - every 4 to 6 Young, 12/21/ hours as M.D. 2014 needed pain Keflex 07/09/ Hx Capsules 500mg 9caps 1 by mouth Ernst Karimi 2013 - three times Brand, 07/16/ day for 3 M.D. 2013 days Tamsulosin /00/ Hx Unknown - 2013 Flomax / Hx 0.4mg 1 tablet hs Unknown - 2014 Neurontin // Hx Unknown 2013 Klonopin / Hx 0.5mg 1-4 tab prn Unknown - 2014 Sinemet 00/ Hx Unknown - 2013 Requip / Hx 1mg 1 tab every Unknown 0000 - 2 hr while 09/07/ , max 2015 dosage 24mg/day Aspirin / Hx Tablets 81mg 1 by mouth Unknown 0000 - every day 2015 Ibuprofen 00/ Hx 2 tablets Unknown 0000 - bid prn 2015 Vital Signs Date Vital Result Comment 11/02/2017 Height 66 inches 5'6" Weight 189.00 [...] Test Date Test Result H/L Range Note Urine Culture And 11/16/2015 Urine Culture SEE RESULT BELOW 1 Sensitivities Type & Screen 11/16/2015 Patient Blood A Positive Type Antibody Screen NEGATIVE Comp Metabolic Panel 11/16/2015 [...] Egfr Non- 96.4 >60 Egfr 124.0 >60 2 Laboratory test finding 11/16/2015 Partial Thrombo Time [...] Color Yellow Urine Appearance Clear Urine Specific Josephine 1.023 1.010-1.030 Urine pH 5.0 5-9 Urine Urobilinogen Negative Negative Urine Ketones Trace Negative Urine Protein Negative Negative Urine Leukocytes Negative Negative Urine Blood Negative Negative Urine Nitrite Negative Negative Urine Bilirubin Negative Negative Urine Glucose Negative Negative Surgical Pathology 07/09/2013 S RUN DATE: 07/10/ <SEE NOTE> 3 1 SEE RESULT BELOW Name: CRISTÓBAL MEIER : [address]: Kristine Burleson MD Acct: [id number] Unit: [id number] AGE: 70 Location: [facility] Re11/16/15 SEX: M Status: REG REF SPEC: [id number] RIKKI: 11/16/[address]: Kristine Burleson MD REQ: [id number] RECD: 11/16/15 STATUS: COMP _ SOURCE: URINE SPDESC: ORDERED: Urine Culture Procedure Result Reported Site Urine Culture Final 11/17/15- 1222 ML No Growth (<1,000 CFU/mL) * ML - MAIN LAB ([facility]) . END OF REPORT * ML=Testing performed at Main Lab DEPARTMENT OF PATHOLOGY, [address] [place], [place] [id number] Ashutosh Pineda M.D. Director [facility] # [id number] 2 Because ethnic data is not always readily [...] 15-29 5 Kidney failure <15 (or dialysis) 3 RUN DATE: 07/10/13 [facility] LAB LIVE PAGE 1 RUN TIME: [address] [place] [address] Specimen Inquiry Name: CRISTÓBAL MEIER : [address]: Ernst Mott MD Acct: [id number] Unit: [id number] AGE: 68 Location: [facility] Re07/09/13 SEX: M Status: REG REF SPEC: [id number] RIKKI: 07/09/13- SUBM DR: Ernst Mott MD REQ: [id number] RECD: 07/09/131201 STATUS: SOUT _ ORDERED: LEVEL I FINAL DIAGNOSIS Event monitor: Foreign body (event monitor) (Gross diagnosis). PRE-OPERATIVE DIAGNOSIS Syncope and collapse. GROSS DESCRIPTION The specimen is received fresh labeled Cristóbal Meier, Explanted Event Monitor and consists of a 6.2 x 1.8 x 0.7 cm. silver metallic certified medical records coder. The following inscription is identified: Navita Reveal XT, model 9529 SN [id number]. Per established hospital medical staff protocol no tissue is submitted. Gross only. Signed (signature on file) Funmilayo Perez MD 0945 END OF REPORT * ML=Testing performed at Main Lab DEPARTMENT OF PATHOLOGY, [address] [place] [address] Ashutosh Pineda M.D. Director [facility] # [id number] Procedures Date CPT Code Description Status 11/25/2015 04598 EKG, Interpretation Only Completed 11/24/201540986 THR Total Hip Replacement Completed 11/24/201561789 THR Total Hip Replacement Completed 10/23/2014 62785 ECHO Transthorasic Realtime 2D W Doppler & Color Flow Completed Hosp 10/21/2014 47891 EKG, Interpretation Only Completed 10/15/2014 42009 Capsulorrhaphy Anterior W/Coracoid Process Transfer Completed 10/15/2014 53240 Capsulorrhaphy Anterior W/Coracoid Process Transfer Completed 10/15/2014 50011 Tenodesis Biceps Long Tendon Completed 10/15/2014 97545 Tenodesis Biceps Long Tendon Completed 10/15/2014 77661 Repair Ruptured Musculotendinous Cuff Open, Chronic Completed 10/15/2014 45455 Repair Ruptured Musculotendinous Cuff Open, Chronic Completed 08/22/2014 62039 Dislocation Shoulder W/Anesthesia Completed 07/09/2013 72359 Removal Loop Recorder Completed 06/28/2013 36941 EKG Tracing & Interpretation Completed 06/04/2013 81098 Interrogation Device Eval,Implantable Loop Recorder Completed System 03/20/2013 92194 Rad Exam; Foot Comp Completed 03/06/2013 31520 Interrogation Device Eval,Implantable Loop Recorder Completed System 03/05/2013 04778 FX Treatment Great Toe; Closed w/o manipulation Completed 12/05/2012 50394 Interrogation Device Eval,Implantable Loop Recorder Completed System 07/31/2012 99967 Interrogation Device Eval,Implantable Loop Recorder Completed System 05/09/2012 74381 Interrogation Device Eval,Implantable Loop Recorder Completed System 02/16/2012 61958 Interrogation Device Eval,Implantable Loop Recorder Completed System 12/19/2011 68996 Interrogation Device Eval,Implantable Loop Recorder Completed System 11/09/2011 38568 Polysomnography Sleep Staging 4+ Parameters W/Cpap Completed 09/21/2011 87873 EEG Monitoring By Electrodes Completed 09/21/2011 56410 EEG ALL Night Recording Completed 09/21/2011 12490 Polysomnography Sleep Staging 4+ Parameters Completed 08/01/2011 82673 EKG, Interpretation Only Completed 05/15/2006 96847 ECHO/Stress Completed 05/15/2006 62060 Stress Test Completed 05/15/2006 51214 Stress Test Completed Encounters Type Date Location Provider CPT E/M Dx Office Visit 10/05/2017 [facility] [address] S42.302D 1:15p Of C.M.A. Office Visit 09/19/2017 [facility] [address] S42.302D 1:30p Of C.M.AAddi Office Visit 09/08/2017 [facility] Rosaura Crowell, 98927 S42.302A 2:30p Of C.MJim PA-C Office Visit 08/29/2017 [facility] [address] S42.302A 2:30p Of Mary S42.302D Office Visit 08/24/2017 9:45a [facility] [place] [address] S42.302A C.M.A. Office Visit 08/17/2017 9:45a [facility] [place] [address] S42.302A C.M.A. S42.302D Office Visit 08/11/2017 8:15a [facility] [place] [address] S42.302A C.M.A. W01.0xxA Office Visit 11/11/2016 11:15a [facility] Kristine Burleson M.D. 40432 Z96.641 C.M.AAddi Z96.642 Office Visit 11/30/2015 9:52a [facility] Kelly, 81254 [facility] Hospitalists F05 Z96.641 Z47.1 Office Visit 11/29/2015 [facility] [address] [facility]pc [place] Hospitalists F05 Z96.641 Z47.1 Office Visit 11/28/2015 11:58a [facility] Tarun Mac, 14975 F05 MEvangelina G20 Office Visit 11/28/2015 9:51a [facility],eulalio Villafuerte M.D. 09187 G[facility] Hospitalists F05 Z96.641 Z47.1 Office Visit 11/27/2015 11:57a [facility] Phillip Duncan, 39681 F05 MEvangelina G20 Office Visit 11/27/2015 9:51a [facility] Assoc,eulalio Villafuerte M.D. 02241 G20 Hospitalists F05 Z96.641 Z47.1 Office Visit 11/26/2015 9:50a [facility], Herb Villafuerte M.D. 35094 G20 Hospitalists F05 Z96.641 Z47.1 Office Visit 11/25/2015 1:47p [facility], Char JordanBRITTNEY koch 82771 N40.0 Hospitalists G20 G47.33 Z96.641 Office Visit 11/25/2015 9:49a [facility], Herb Villafuerte M.D. 35896 G20 Hospitalists F05 Z47.1 Office Visit 11/24/2015 1:46p [facility], Aryan Reagan, 47412 N40.0 Hospitalists N.P. G47.33 G20 Z96.641 Office Visit 09/09/2015 11:00a [facility] Kristine Burleson 45861 M16.11 Mary Morse Office Visit 05/12/2015 3:30p [facility] [place] [address] S43.015S C.M.AAddi S43.015D Office Visit 04/21/2015 1:00p [facility] [place] [address] S43.015S C.MAddiAAddi S43.015D Office Visit 02/17/2015 1:15p [facility] [place] [address] S43.015S C.M.AAddi S43.015D Office Visit 10/22/2014 1:36p [facility], Sarah Beth Simon, 32574 786.05 Hospitalists N.P. 518.0 786.06 332.0 Office Visit 10/21/2014 1:36p [facility], Sarah Beth Simon, 56740 786.05 Hospitalists N.P. 786.06 518.0 332.0 Office Visit 10/18/2014 [facility] 39305 799.02 Assoc, Lita Morse Hospitalist 786.06 332.0 Office Visit 10/17/2014 11:11a [facility], Deloris Mercado N.P. 15163 799.02 Hospitalists 332.0 786.06 V45.89 Office Visit 08/22/2014 7:06a [facility] Assoc, Char Jordan, STONE LATHE OPERATOR 84488 332.0 Hospitalists V72.84 831.00 V45.89 Office Visit 08/21/2014 7:00a [facility] Lalit Cloud, 77382 831.00 C.M.A. Lito 718.31 Office Visit 06/28/2013 10:15a [facility] Ernst Mott, 92019 780.2 [facility] Cammie.Sachi Office Visit 02/13/2013 3:30p [facility] Gio Machado M.D. 06056 715.95 C.M.AAddi Office Visit 05/18/2012 1:00p [facility] Of Ernst Mott, 52003 780.2 [facility] Lito Office Visit 09/30/2011 9:34a [facility] Lalit Irving 61210 327.23 [facility] Lito V67.59 Office Visit 09/12/2011 2:12p [facility] Lalit Irving 15697 786.09 [facility] Lito 780.2 Plan of Care 10/05/2017 - Linsey Galindo, MDS42.302D Unsp fx shaft of humerus, left arm, subs for fx w mackenzie vacaFollow up:Follow up: 3-4 weeks
--- OUTSIDE RECORDS SUMMARY | 2017-11-15 10:02 | XMS REPORT ---
:1945 External Reference #:[id number] Author Organization [employer] Address [address] [place] [address] [place] [address] Phone [phone] Care Team Providers Name Role Phone Eddie Lauren MD Primary Care Physician Unavailable Payers Type Date Identification Numbers Payment Provider Subscriber Medicare Primary Policy Number: [id number] Medicare Cristóbal Meier PayID: [id number] [address] [place] [address] Medigap Part B Expires: 2017 Policy Number: [id number] Medicare Cristóbal A Renea PayID: [id number] [address] [place] [address] Medigap Part B Policy Number: [id number] [facility] Cristóbal Meier PayID: [id number] [address] [place] [address] Workers Compensation Expires: Policy Number: [place] Domenica Camarena 2010 [id number] Exchange Renea Onset: 2011 PayID: [id number] [address] [place] [address] Problems Date Description Provider Status Onset: 06/28/2013 [...] 0000 tablet by mouth in the evening [place] 11/15/ Hx Tablets 5-325mg 70tabs 1-2 tablets M16.11 2015 - by mouth Bordoni, 02/17/ every 4-6 PRIVATE DUTY LPN 2016 hours as needed for pain. Coumadin 11/15/ Hx Tablets 2mg 45tabs 1 by mouth M16.11 2015 - daily post Bordoni, 02/17/ operatively PRIVATE DUTY LPN 2015 or as directed by vns/. do not take this medication prior to surgery [place] 09/08/ Hx Tablets 5-325mg 40tabs 1-2 tablets 2015 - by mouth Bordoni, 02/17/ every 4-6 PRIVATE DUTY LPN 2016 hours as needed for pain. [place] 09/23/ Hx Tablets 5-325mg 50tabs 1-2 by [...] Color Yellow Urine Appearance Clear Urine Specific [place] 1.023 1.010-1.030 Urine pH 5.0 5-9 Urine Urobilinogen Negative Negative Urine Ketones Trace Negative Urine Protein Negative Negative Urine Leukocytes Negative Negative Urine Blood Negative Negative Urine Nitrite Negative Negative Urine Bilirubin Negative Negative Urine Glucose Negative Negative Surgical Pathology 07/09/2013 S RUN DATE: 07/10/ <SEE NOTE> 3 1 SEE RESULT BELOW Name: CRISTÓBAL MEIER : [address]: Kristine Burleson MD Acct: [id number] Unit: [id number] AGE: 70 Location: [facility] Re11/16/15 SEX: M Status: REG REF SPEC: [id number] RIKKI: 11/16/15-[address] [facility] [address]: Kristine Burleson MD REQ: [id number] RECD: 11/16/15 STATUS: COMP _ SOURCE: URINE SPDESC: ORDERED: Urine Culture Procedure Result Reported Site Urine Culture Final 11/17/15- 1222 ML No Growth (<1,000 CFU/mL) * ML - [facility] ([facility]) . END OF REPORT * ML=Testing performed at Main Lab DEPARTMENT OF PATHOLOGY, [facility] [address] [place], [place] [address] Ashutosh Pineda M.D. Director [facility] # [id number] 2 Because ethnic data is not always [...] <15 (or dialysis) 3 RUN DATE: 07/10/13 [facility] LAB LIVE PAGE 1 RUN TIME: 945 [facility] [address] [place], [place] [address] Specimen Inquiry Name: CRISTÓBAL MEIER : [address]: Ernst Mott MD Acct: [id number] Unit: [id number] AGE: 68 Location: [facility] Re07/09/13 SEX: M Status: REG REF SPEC: [id number] RIKKI: 07/09/13- SUBM DR: Ernst Mott MD REQ: [id number] RECD: 07/09/13120 STATUS: SOUT _ ORDERED: LEVEL I FINAL DIAGNOSIS Event monitor: Foreign body (event monitor) (Gross diagnosis). PRE-OPERATIVE DIAGNOSIS Syncope and collapse. GROSS DESCRIPTION The specimen is received fresh labeled Cristóbal Meier, Explanted Event Monitor and consists of a 6.2 x 1.8 x 0.7 cm. silver metallic medical specialist. The following inscription is identified: Airtaskertronic Reveal XT, model 9529 SN [id number]. Per established hospital medical staff protocol no tissue is submitted. Gross only. Signed (signature on file) Funmilayo Perez MD 0945 END OF REPORT * ML=Testing performed at Main Lab DEPARTMENT OF PATHOLOGY, [address] [place] [address] Ashutosh Pineda M.D. Director [facility] # [id number] Procedures Date CPT Code Description Status 11/25/2015 33323 EKG, Interpretation Only Completed 11/24/2015 57030 THR Total Hip Replacement Completed 11/24/2015 98117 THR Total Hip Replacement Completed 10/23/2014 17246 ECHO Transthorasic Realtime 2D W Doppler & Color Flow Completed Hosp 10/21/2014 03780 EKG, Interpretation Only Completed 10/15/2014 10642 Capsulorrhaphy Anterior W/Coracoid Process Transfer Completed 10/15/2014 55619 Capsulorrhaphy Anterior W/Coracoid Process Transfer Completed 10/15/2014 75236 Tenodesis Biceps Long Tendon Completed 10/15/2014 63308 Tenodesis Biceps Long Tendon Completed 10/15/2014 28168 Repair Ruptured Musculotendinous Cuff Open, Chronic Completed 10/15/2014 96883 Repair Ruptured Musculotendinous Cuff Open, Chronic Completed 08/22/2014 41438 Dislocation Shoulder W/Anesthesia Completed 07/09/2013 08510 Removal Loop Recorder Completed 06/28/2013 66797 EKG Tracing & Interpretation Completed 06/04/2013 41004 Interrogation Device Eval,Implantable Loop Recorder Completed System 03/20/2013 01669 Rad Exam; Foot Comp Completed 03/06/2013 34265 Interrogation Device Eval,Implantable Loop Recorder Completed System 03/05/2013 89301 FX Treatment Great Toe; Closed w/o manipulation Completed 12/05/2012 34091 Interrogation Device Eval,Implantable Loop Recorder Completed System 07/31/2012 61947 Interrogation Device Eval,Implantable Loop Recorder Completed System 05/09/2012 58873 Interrogation Device Eval,Implantable Loop Recorder Completed System 02/16/2012 15224 Interrogation Device Eval,Implantable Loop Recorder Completed System 12/19/2011 05557 Interrogation Device Eval,Implantable Loop Recorder Completed System 11/09/2011 84608 Polysomnography Sleep Staging 4+ Parameters W/Cpap Completed 09/21/2011 87539 EEG Monitoring By Electrodes Completed 09/21/2011 24275 EEG ALL Night Recording Completed 09/21/2011 11916 Polysomnography Sleep Staging 4+ Parameters Completed 08/01/2011 96684 EKG, Interpretation Only Completed 05/15/2006 92562 ECHO/Stress Completed 05/15/2006 43912 Stress Test Completed 05/15/2006 91732 Stress Test Completed Encounters Type Date Location Provider CPT E/M Dx Office Visit 10/05/2017 [place] [address] S42.302D 1:15p Of C.M.A. Office Visit 09/19/2017 [facility] [address] S42.302D 1:30p Of C.M.A. Office Visit 09/08/2017 [facility] Rosaura Crowell 72305 S42.302A 2:30p Of C.M.A. PA-C Office Visit 08/29/2017 [facility] [place] [address] S42.302A 2:30p Of C.M.A. S42.302D Office Visit 08/24/2017 9:45a [facility] [place] [address] S42.302A C.M.A. Office Visit 08/17/2017 9:45a [facility] [place] [address] S42.302A C.M.A. S42.302D Office Visit 08/11/2017 8:15a [facility] [place] [address] S42.302A C.M.A. W01.0xxA Office Visit 11/11/2016 11:15a [facility] Kristine Burleson M.D. 51599 Z96.641 C.M.A. Z96.642 Office Visit 11/30/2015 9:52a [facility] Ancelmo Mendoza, 26257 [facility],pc PA Hospitalists F05 Z96.641 Z47.1 Office Visit 11/29/2015 9:52a [facility] Ancelmo Mendoza, 64587 G20 Assoc,pc PA Hospitalists F05 Z96.641 Z47.1 Office Visit 11/28/2015 11:58a [facility] Tarun Mac, 39818 F05 Lito G20 Office Visit 11/28/2015 9:51a [facility] Herb Villafuerte M.D. 14212 G20 Hospitalists F05 Z96.641 Z47.1 Office Visit 11/27/2015 11:57a [facility] Phillip WagnerAddi Perla, 95758 F05 Lito G20 Office Visit 11/27/2015 9:51a [facility], Herb Villafuerte M.D. 12136 G20 Hospitalists F05 Z96.641 Z47.1 Office Visit 11/26/2015 9:50a [facility], Herb Villafuerte M.D. 40068 G20 Hospitalists F05 Z96.641 Z47.1 Office Visit 11/25/2015 1:47p [facility] Ass, [place] [address] N40.0 Hospitalists G20 G47.33 Z96.641 Office Visit 11/25/2015 9:49a [facility], Herb Villafuerte M.D. 52112 G20 Hospitalists F05 Z47.1 Office Visit 11/24/2015 1:46p [facility], Aryan Reagan, 50685 N40.0 Hospitalists N.P. G47.33 G20 Z96.641 Office Visit 09/09/2015 11:00a [facility] Kristine Burleson, 31155 M16.11 Mary Morse Office Visit 05/12/2015 3:30p [facility] [place] [address] S43.015S C.M.AAddi S43.015D Office Visit 04/21/2015 1:00p [facility] [place] [address] S43.015S C.MAddiAAddi S43.015D Office Visit 02/17/2015 1:15p [facility] [place] [address] S43.015S Liliya.MAddiAAddi S43.015D Office Visit 10/22/2014 1:36p [facility], Sarah Beth Simon, 66780 786.05 Hospitalists N.P. 518.0 786.06 332.0 Office Visit 10/21/2014 1:36p [facility], Sarah Beth Simon, 48566 786.05 Hospitalists N.P. 786.06 518.0 332.0 Office Visit 10/18/2014 11:12a [facility] An[facility]o, 44302 799.02 Assoc,pc Hospitalists M.DAddi Hospitalist 786.06 332.0 Office Visit 10/17/2014 11:11a [facility] Assoc, Burt Fernandez.Pavan 44943 799.02 Hospitalists 332.0 786.06 V45.89 Office Visit 08/22/2014 7:06a [facility], [place] [address] 332.0 Hospitalists V72.84 831.00 V45.89 Office Visit 08/21/2014 7:00a [facility] Lalit Cloud, 77362 831.00 C.M.AAddi Morse 718.31 Office Visit 06/28/2013 10:15a [facility] Ernst Mott, 32068 780.2 Director Immunology M.Sachi Office Visit 02/13/2013 3:30p [facility] Gio Machado M.D. 82663 715.95 C.M.AAddi Office Visit 05/18/2012 1:00p [facility] Ernst Mott 63731 780.2 Edyta Morse Office Visit 09/30/2011 9:34a [facility] Lalit Irving 86775 327.23 [facility] [place]ito V67.59 Office Visit 09/12/2011 2:12p [facility] Lalit Irving 99679 786.09 [facility] Lito 780.2 Plan of Care Future Appointment(s):11/15/2017 11:45 am - Rosaura Crowell PA-C at [facility]11/15/2017 11:45 am - Linsey Galindo MD at [facility]11/09/2017 - Linsey Galindo, MDS42.302D Unsp fx shaft of humerus, left arm, subs for fx w routn healFollow up:Follow up: 10- 14 days post op
[2017-11-15] MEDS ORDERED: ceFAZolin 2 GM in NS PREMIX(*) 2 GM/100 ML BAG IVPB ONE (10:12)
[2017-11-15] MEDS ORDERED: Lidocaine 2% PF * 5 ML VIAL ONE (10:24)
[2017-11-15] MEDS ORDERED: Midazolam* 1 MG/ML 2 ML VIAL (2 MG) ONE ×2 (10:24→15:30)
[2017-11-15] MEDS ORDERED: Phenylephrine INJ* 10 MG/ML 1 ML VIAL (10 MG) ONE (12:20)
[2017-11-15] MEDS ORDERED: Propofol* 500 MG/50 ML BTL ONE ×3 (12:25→14:37)
[2017-11-15] MEDS ORDERED: HYDROmorphone INJ1* 1 MG/ML SYRINGE IV PRN (12:56)
[2017-11-15] MEDS ORDERED: Naloxone* 0.4 MG/ML 1 ML VIAL IV PRN (12:56)
[2017-11-15] MEDS ORDERED: Acetaminophen IV 1GM/100ML * 100 ML ONE (12:57)
[2017-11-15] MEDS ORDERED: Ketorolac INJ* 30 MG/ML 1 ML VIAL ONE (12:57)
[2017-11-15] MEDS ORDERED: EPINEPHrine SYR 0.1MG/ML* SYRINGE ONE (13:08)
[2017-11-15] MEDS ORDERED: Succinylcholine* 20 MG/ML 10 ML VIAL ONE (13:32)
[2017-11-15] MEDS ORDERED: Remifentanil* 2 MG VIAL ONE (13:59)
[2017-11-15 15:15] LABS: Hematocrit 34 % (42-52); Hemoglobin 11.3 g/dl (14.0-18.0)
[2017-11-15] MEDS ORDERED: Bupivacaine 0.25% SDV PF* 10 ML VIAL INJ ONE (15:50)
[2017-11-15] MEDS ORDERED: Dexmedetomidine* 200 MCG/2 ML 2 ML VIAL ONE (16:09)
[2017-11-15] MEDS ORDERED: Vancomycin(*) 1,000 MG VIAL ONE (16:16)
[2017-11-15] MEDS ORDERED: ceFAZolin 1 GM VIAL(*) ONE (16:19)
[2017-11-15] MEDS ORDERED: fentaNYL* 50 MCG/ML 2 ML VIAL (100 MCG VIAL) ONE (16:33)
[2017-11-15] MEDS ORDERED: Magnesium Hydroxide LIQ* 30 ML UDC PO PRN (17:00)
[2017-11-15] MEDS ORDERED: Acetaminophen TAB* 325 MG PO SCH (17:00)
[2017-11-15] MEDS ORDERED: Ondansetron ODT TAB* 4 MG PO PRN (17:11)
[2017-11-15] MEDS ORDERED: Docusate CAP* 100 MG PO PRN (17:11)
[2017-11-15] MEDS ORDERED: diPHENhydraMINE PO* 25 MG PO PRN (17:11)
[2017-11-15] MEDS ORDERED: diPHENhydraMINE IV* 50 MG/ML 1 ml VIAL (BENADRYL) IV PRN (17:11)
[2017-11-15] MEDS ORDERED: Ondansetron INJ* 2 MG/ML VIAL IV PRN (17:11)
[2017-11-15] MEDS ORDERED: Carbidopa/Levodop 25/100 MG TAB(*) PO PRN (17:14)
[2017-11-15] MEDS ORDERED: Haloperidol INJ IV/IM* 5 MG/ML AMP IV SLOW PU PRN (17:36)
[2017-11-15] MEDS ORDERED: Acetaminophen TAB* 325 MG ONE (18:02)
[2017-11-15] MEDS: Donepezil TAB* 5 MG PO SCH (19:22)
[2017-11-15] MEDS: Polyethylene Glycol 3350* 17 GM PACKET PO SCH (19:22)
[2017-11-15] MEDS: Tamsulosin CAP* 0.4 MG PO SCH (20:16)
[2017-11-15] MEDS: LEVODOPA PO SCH (20:18)
[2017-11-15] MEDS: CARBIDOPA PO SCH (20:18)
[2017-11-15] MEDS: ceFAZolin 1 GM in Dextrose (*) 1 GM/50 ML BAG IVPB SCH (20:24)
[2017-11-15] MEDS ORDERED: MELATONIN 10 MG PO SCH (21:00)
[2017-11-15] MEDS ORDERED: OXYBUTYNIN CHLORIDE TOPICAL SCH (21:00)
--- NOTE | 2017-11-15 21:59 | CONS ---
CONSULTATION REPORT: DATE OF CONSULT: 11/15/17 PATIENT OF: Dr. Linsey Galindo. CONSULTED TO: Dr. Archie Pelletier. CHIEF COMPLAINT: Left proximal humerus fracture. REASON FOR CONSULT: Co-medical management. HISTORY OF PRESENT ILLNESS: Mr. Meier is a 72-year-old gentleman with history of Parkinson's disease, who presented to Dr. Galindo's office for followup of his left humeral shaft fracture. 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 The patient was taken to the operating room earlier today and had a successful left humerus ORIF by Dr. Galindo and we were asked to see the patient for co- medical management regarding his history of Parkinson's disease and depression. The patient was seen at the Postanesthesia Care Unit and reports doing well and his pain was completely tolerable. He denied any chest pain, shortness of breath, dizziness, or syncope. He was accompanied in the room by his and his son, and he was getting ready to be transferred to the short-stay unit for observation overnight. PAST MEDICAL HISTORY: As mentioned above, significant for Parkinson's disease, for which he had a deep brain stimulator placement as well as history of depression and constipation. PAST SURGICAL HISTORY: Significant for: 1. Left and right total hip replacement. 2. Left lateral rotator cuff repair. 3. Placement of deep brain stimulator. 4. Left humeral fracture, status post ORIF of left humeral nonunion fracture. CURRENT MEDICATIONS: His medications at home include: 1. Tylenol 500 mg p.o. q.6 hours as needed for pain. 2. Calcium with vitamin 3 one tablet p.o. daily. 3. Carbidopa/levodopa 25/100 one tablet p.o. at 2300. 4. Carbidopa/levodopa 25/100 one tablet p.o. daily as needed for Parkinson symptoms. 5. Vitamin D3 1000 units p.o. daily. 6. Voltaren 50 mg p.o. b.i.d. 7. Colace 100 mg 1 tablet b.i.d. 8. Aricept 5 mg p.o. nightly. 9. Advil 200 mg p.o. q.6 hours as needed for pain. 10. Melatonin 10 mg p.o. q.h.s. 11. Paxil 40 mg p.o. daily. 12. MiraLAX 17 g p.o. q.h.s. p.r.n. for constipation. 13. ReQuip 1 mg p.o. daily. 14. Rytary 3 tablets p.o. t.i.d. 15. Flomax 0.4 mg p.o. q.h.s. ALLERGIES: Multiple, including GABAPENTIN, OPIOIDS, MEPERIDINE. FAMILY HISTORY: Reviewed and noncontributory. SOCIAL HISTORY: The patient lives with his . He is a nonsmoker, who drinks alcohol occasionally. He is a right hand dominant. Denies illicit drug use and his is the surrogate decision maker. REVIEW OF SYSTEMS: See HPI, otherwise 12 points review of systems were examined and were essentially negative. PHYSICAL EXAM: He is a pleasant, older male, appears comfortable, and in no acute distress or discomfort at the time of consultation. Vitals: Revealed a temperature of 97.0, pulse of 64, blood pressure of 144/98, respirations of 20 with O2 saturation of 93% on 3 L oxygen via nasal cannula. HEENT: Head is normocephalic, atraumatic. Sclerae anicteric. PERRLA, EOMs intact. Oropharynx is pink and moist. Neck: Supple. Trachea midline. No cervical adenopathy, thyromegaly, or JVD. Lungs: Clear to auscultation bilaterally. Heart: Regular rate and rhythm. Normal S1 and S2 without rubs, murmurs, or gallops. Back: With normal curvature. No CVA tenderness. Abdomen: Soft, nontender, and nondistended. There is no hernias, masses, or hepatosplenomegaly. Extremities: Without cyanosis, clubbing, or edema. Left shoulder is secured with a sling and Fernando wrap extending to mid clavicle. Left distal extremity with normal sensation and finger movement. Radial pulse is felt bilaterally. Neurologic: He is awake, alert, and oriented. He has a resting tremor consistent with history of Parkinson's disease. Rectal Exam: Deferred at this time. IMPRESSION: A 72-year-old gentleman with a history of severe Parkinson's disease, for which he had deep brain stimulator placement as well as history of depression and benign prostatic hypertrophy, who is postop day #0, status post open reduction and internal fixation of left humeral nonunion fracture, clinically stable. ASSESSMENT AND PLAN: 1. Left humeral fracture, status post open reduction and internal fixation. Management per the orthopedic team. The patient will likely to start physical therapy in the morning and will have addiction social worker to discuss with the family , the possibility of placement to short-term rehab versus discharge to home and get physical therapy at home visit. He appears to be clinically stable and his pain is tolerable. 2. Parkinson's disease. His brain stimulator is functioning well and we will resume his carbidopa/levodopa regimen per home dosing. 3. Depression. We will continue his Paxil. 4. Benign prostatic hypertrophy. We will resume his Flomax daily. 5. DVT prophylaxis. Per ortho team. The patient will continue on Lovenox 40 mg subcu every day. 6. Code status. He is a full code. TIME SPENT: Approximately 50 minutes were spent in consultation to this patient including greater than 50% on taking history and performing physical exam. I have discussed the case with my attending, who agreed to plan of care. Thank you for this consultation. HERNANDEZ OLSEN [id number]/[facility] #: [id number] PHI
[2017-11-15] MEDS: Acetaminophen TAB* 325 MG PO SCH (22:47)
[2017-11-15] MEDS: Carbidopa/Levodop 25/100 MG TAB(*) PO SCH (22:48)
[2017-11-16] MEDS: ceFAZolin 1 GM in Dextrose (*) 1 GM/50 ML BAG IVPB SCH ×2 (04:20→12:42)
[2017-11-16] MEDS: Acetaminophen TAB* 325 MG PO SCH ×3 (05:24→22:50)
[2017-11-16 05:57] LABS: Hematocrit 27 % (42-52); Hemoglobin 9.3 g/dl (14.0-18.0); Mean Platelet Volume 7.4 um3 (7.4-10.4); Platelet Count 177 10^3/ul (150-450)
[2017-11-16 06:15] LABS: EGFR Non-African American 110.2 (>60)
--- NOTE | 2017-11-16 07:07 | RAD ---
INDICATION: [Open reduction and internal fixation of left humerus nonunion. COMPARISON: Comparison is made with a prior x-ray study of the left humerus from November 02, 2017. TECHNIQUE: 26.6 seconds of intermittent fluoroscopic guidance were provided and a single spot spot film of the left humerus was obtained in the operating room. FINDINGS: There are multiple surgical instruments and a single interfragmentary screw present. IMPRESSION: INTRAOPERATIVE CONTROL FILMS. CPT II Codes: G9500
--- NOTE | 2017-11-16 07:25 | PN ---
Progress Note - Progress Note Date of Service: 11/16/17 Note: Pt awake and alert. Pain with movement. On O2. No CP, SOB, numbness or tingling. C/o stiffness of left hand. Temp Pulse Resp BP Pulse Ox 99.2 F 77 16 140/67 97 11/16/17 04:27 11/16/17 04:27 11/16/17 04:27 11/16/17 04:27 11/16/17 04:53 NAD. LUE splint and dressing in place. able to flex/ext wrist. stiffness with finger ROM. able to flex but hard to extend digits. SILT grossly distally. brisk cap refill Laboratory Results - last 24 hr 11/15/17 11/16/17 11/16/17 15:03 05:35 05:35 Hgb 11.3 L 9.3 L Hct 34 L 27 L Plt Count 177 MPV 7.4 Sodium 134 L Potassium 3.9 Chloride 105 Carbon Dioxide 20 L Anion Gap 9 BUN 20 Creatinine 0.70 Est GFR ( Amer) 133.4 Est GFR (Non-Af Amer) 110.2 BUN/Creatinine Ratio 28.6 H Glucose 98 Calcium 7.8 L A/P POD#1 from L humerus ORIF of nonunion malunion ACBLA with HCT down to 27. will monitor and transfuse if necessary NWB. PT/OT. focus on hand ROM, OOBTC lovenox while in house tramadol and tylenol for pain. will follow and d/c to SNF or home as able
[2017-11-16] MEDS: traMADol TAB* 50 MG PO PRN (07:29)
--- NOTE | 2017-11-16 07:54 | RAD ---
Indication: Post ORIF LEFT humerus. Comparison: November 02, 2017 Technique: AP and lateral views LEFT humerus. REPORT AND IMPRESSION: #. Multiple cortical plates and screws traverse the diaphyseal fracture of the humerus with resulting gross anatomic alignment. Overlying soft tissue swelling and cutaneous khadijah. #. Additional solitary fixation screw at the coracoid process of the scapula. #. Bone density appears decreased throughout.
[2017-11-16] MEDS: Calcium/Vitamin D TAB 250/125* TAB PO SCH (09:44)
[2017-11-16] MEDS: Cholecalciferol TAB* 1000 UNITS PO SCH (09:45)
[2017-11-16] MEDS: PARoxetine HCL TAB* 40 MG PO SCH (09:47)
[2017-11-16] MEDS: rOPINIRole TAB* 1 MG PO SCH (09:47)
[2017-11-16] MEDS: LEVODOPA PO SCH ×3 (09:48→20:42)
[2017-11-16] MEDS: CARBIDOPA PO SCH ×3 (09:48→20:42)
[2017-11-16] MEDS ORDERED: Melatonin 3 MG TAB PO SCH (10:39)
[2017-11-16] MEDS ORDERED: Enoxaparin(*) 40 MG/0.4 ML SYR SUBCUT SCH (12:00)
--- NOTE | 2017-11-16 15:59 | OP ---
CC: PCP OPERATIVE REPORT: DATE OF OPERATION: 11/15/17 DATE OF : 41 SURGEON: Linsey Galindo MD ASSISTANTS: 1. Dr. Lalit Carreon. 2. HERNANDEZ Bruno PRE-OP DIAGNOSIS: Left humerus fracture, nonunion, malunion. POST-OP DIAGNOSIS: Left humerus fracture, nonunion, malunion. OPERATIVE PROCEDURE: Open reduction and internal fixation of the left humeral shaft. INDICATIONS: Brian Meier is a 72-year-old gentleman with Parkinson's disease , who has a history of a previous failed Latarjet that has been subsequently dislocated. Because of his Parkinson's disease he has had a deep brain stimulator placed. He has also had frequent falls. He sustained a fall approximately 3 months ago in July where he sustained a comminuted midshaft and a humerus fracture with a large butterfly fragment. Because of the patient's comorbidities and his issues with anesthesia including postoperative delirium with his most recent hip surgery, he had elected to proceed with nonoperative treatment. He is treated with a Adhikari brace and serial x-rays were performed. He did not heal. He had persistent motion of the fracture gap. He was unable to use his arm. He could not counselor marriage and family or have any meaningful function of his arm. After discussion with the patient and his family, they elected to proceed with surgical treatment. Risks and benefits were discussed at length. The patient underwent preoperative medical risk optimization with all of his doctors including a neurologist and his primary care doctor. An extensive discussion prior to surgery was made with Anesthesia. The plan was to try to proceed with regional blocks as well as monitored anesthesia care versus general anesthesia. Because of the length of the surgery, we decided to proceed with general anesthesia. Because the patient had a deep brain stimulator so close to and involving the left side, it was determined not safe to proceed with regional anesthesia; therefore, general anesthesia was performed. The deep brain stimulator was turned off prior to surgery and the plan was for bipolar electrocautery so as to not interact or counteract with the patient's implant. The patient understood the risks and benefits, but that were discussed at length between he and his family. Risks include, but are not limited to, bleeding; infection; damage to nerves, vessels, surrounding structures; wound nonhealing; persistent pain; need for further surgery; radial nerve damage; nonunion; malunion; permanent pain; incomplete relief of symptoms ; risk of anesthesia; stroke; heart attack; . The patient and his family have agreed. COMPLICATIONS: None. ESTIMATED BLOOD LOSS: 600 cc. IMPLANTS USED: Synthes 4.5 LC-DCP plate as well as one-third tubular plate. DESCRIPTION OF PROCEDURE: The patient was greeted in the preoperative area by the attending surgeon. Correct extremity was marked, consent was confirmed. The patient was brought back to the operating room suite where he was placed in the supine position on the operating room table. He then underwent general anesthesia with LMA intubation after which he was appropriately positioned on the hand table. The left humeral shaft was then prepped and draped in the usual sterile fashion beginning with chlorhexidine soap, scrub, and alcohol wipe, and a final prep with ChloraPrep. After appropriate surgical pause indicating side, site, procedure, and administration of antibiotics, the anterolateral incision was made about the humerus. The soft tissues were carefully dissected. Much of the patient's anatomy was distorted due to his previous dislocated shoulder as well as this now 3-month nonunion, malunion. The biceps and the brachialis were identified distally. Soft tissues were carefully dissected and using loupe magnification, first the lateral antebrachial cutaneous nerve was identified and then the radial nerve was identified through the muscular layers. Then, care was taken to lela these vessels so that to be protected carefully. Dissection was taken proximally. The fracture site was just at the level of the triceps fascia as well as the radial nerve, therefore care was taken about mobilizing the fracture proximal to that. The cephalic vein was identified proximally and dissection was taken through to try to expose the deltoid. Much of his biceps had already been destroyed through from his fracture as much of the deltoid that was able to be identified was kept intact. Also, as a result of the laterjet and then persistent dislocation, his anatomy was skewed. A large callus seroma was identified. The soft tissues were carefully dissected to expose this and the seroma sample was then sent for Gram stain and culture that was found to be negative for any obvious bacteria. There were synovitic tissue and loose debris in this large capsule seroma/nonunion. This was then carefully enveloped out to be removed to self-define the fracture fragments. The butterfly fragment had healed in some parts of the proximal fragment, but had not healed in the distal fragment. At this point, the soft tissues were exposed proximally to try to expose as much of the shaft of the fracture. Again , care was taken to try to preserve as much of the deltoid and normal anatomy as possible. The fracture fragments proximally and distally were easy to mobilize. The lateral fragments again had had a large area of callus that extended posteriorly in a large U-shaped pattern that went around and medial to the proximal fragment. Osteotome was then used to gently try to loosen this butterfly fragment with again care to preserve as much of the soft tissue as possible. The fracture fragments were provisionally stabilized and a large LCP 4.5 plate was identified. Because it was difficult to mobilize lateral fragment and the extensive complexity of the case, Dr. Carreon was called into the case to help with mobilization and with stabilization. This was paramount to finish the case in a timely fashion due to the patients comorbidities and risk of extensive blood loss. The bipolar device was use to try to maintain hemostasis at all times of the case. The patient's hematocrit was checked in the middle of the case as well because there was concern for blood loss in the patient's fragile state. The fracture fragments were then further mobilized lateral, after it was then skeletonized off all the loose tissue and debris. Further callus was removed proximally, which allowed for gentle mobilization of the fragments. Because of the chronicity of the procedure and the fact that we were trying to obtain a stable arm, the superior and inferior edges of the butterfly fragment were then excised and later morselized for bone graft. The pieces were then mobilized. First the inferior piece was fixed to the butterfly fragment in a lag-type fashion with a 3.5 cortex screw in a lag fashion and then proximally, the pieces were mobilized with rotation of the arm. The proximal fragment was then also secured with two 3.5 locking screws. At this point, a large 4.5 proximal humerus plate was then placed anterolaterally along the shaft of the bone, which again, the anatomy was distorted because the shoulder was dislocated. This was then placed and then secured proximally and distally with nonlocking and locking screws. A second plate was placed at a 90-degree angle. This was a 3.5 one-third tubular plate and secured with the appropriate-length locking screws. Excess bone graft was placed inferiorly to allow for healing. The wound was copiously irrigated with sterile saline. Powdered vanco was then placed along the plate and along the wound itself because of his history of seroma to prevent any source of infection. Any fascial layers that were identified were then closed. The nerve was found to be intact. Postoperatively , the skin was closed with 2-0 Vicryl and khadijah. The wound was injected with 0.25% Marcaine plain. He was then awoken from anesthesia and transferred to PACU in stable condition after he was placed in the posterior splint. POSTOPERATIVE PLAN: He will be nonweightbearing. X-rays will be obtained in the PACU, which were obtained and found to be in satisfactory alignment. He will be nonweightbearing for 6 weeks. He will be admitted overnight due to his complicated medical comorbidities. He will be on 24 hours of postoperative antibiotics. He will be on DVT prophylaxis while he is in-house and discharged on nothing. He will be placed on tramadol as well as IV Tylenol as he cannot tolerate Percocet or narcotics. Post operatively he was able to extend his wrist indicating his radial nerve was intact. We will try to monitor and limit his risk of delirium. I will continue to follow the patient and see him back in the office 10 to 14 days postop. [id number]/[facility] #: [id number] PHI
[2017-11-16] MEDS: Polyethylene Glycol 3350* 17 GM PACKET PO SCH (17:42)
[2017-11-16] MEDS: Donepezil TAB* 5 MG PO SCH (17:42)
--- NOTE | 2017-11-16 18:10 | PN ---
Subjective Date of Service: 11/16/17 Interval History: Patient seen and examined. Pain well controlled, no SOB or chest pain. Denies fevers or chills. Tolerating PO. Objective Active Medications: Acetaminophen (Tylenol Tab*) 975 mg PO Q8HR [facility] Last Admin: 11/16/17 12:53 Dose: 975 mg Calcium/Vitamin D (Oscal D Tab 250/125*) 1 tab PO QAM [facility] Last Admin: 11/16/17 09:44 Dose: 1 tab Carbidopa/Levodopa (Sinemet 25/100 Tab(*)) 1 tab PO DAILY@2300 [facility] Last Admin: 11/15/17 22:48 Dose: 1 tab Carbidopa/Levodopa (Sinemet 25/100 Tab(*)) 1 tab PO DAILY PRN PRN Reason: parkinsons Cholecalciferol (Vitamin D Tab*) 1,000 units PO QAM [facility] Last Admin: 11/16/17 09:45 Dose: 1,000 units Diphenhydramine HCl (Benadryl Iv*) 25 mg IV Q6H PRN PRN Reason: itching Diphenhydramine HCl (Benadryl Po*) 25 mg PO Q6H PRN PRN Reason: itching Docusate Sodium (Colace Cap*) 100 mg PO BID PRN PRN Reason: CONSTIPATION Donepezil HCl (Aricept Tab*) 5 mg PO QPM [facility] Last Admin: 11/16/17 17:42 Dose: 5 mg Enoxaparin Sodium (Lovenox(*)) 40 mg SUBCUT Q24H [facility] Last Admin: 11/16/17 17:25 Dose: 40 mg Haloperidol Lactate (Haldol Inj Iv/Im*) 5 mg IV SLOW PU Q6H PRN PRN Reason: AGITATION Lactated Ringer's (Lactated Ringers 1000 Ml Bag*) 1,000 mls @ 100 mls/hr IV PER RATE [facility] Last Admin: 11/16/17 05:23 Dose: 100 mls/hr Magnesium Hydroxide (Milk Of Magnesia Liq*) 30 ml PO Q6H PRN PRN Reason: constipation Melatonin (Melatonin) 9 mg PO BEDTIME [facility] Pto:Nf Med* (Rytary (61.25/245mg Cap)) 3 cap PO TID [facility] Last Admin: 09/20/18 12:53 Dose: 3 cap Ondansetron HCl (Zofran Inj*) 4 mg IV Q6H PRN PRN Reason: nausea Ondansetron HCl (Zofran Odt Tab*) 4 mg PO Q6H PRN PRN Reason: NAUSEA Oxybutynin Chloride (Ditropan Xl Tab*) 5 mg PO BEDTIME [facility] Paroxetine HCl (Paxil Tab*) 40 mg PO QAM [facility] Last Admin: 11/16/17 09:47 Dose: 40 mg Polyethylene Glycol/Electrolytes (Miralax*) 17 gm PO QPM [facility] Last Admin: 11/16/17 17:42 Dose: 17 gm Ropinirole HCl (Requip Tab*) 1 mg PO QAM [facility] Last Admin: 11/16/17 09:47 Dose: 1 mg Tamsulosin HCl (Flomax Cap*) 0.4 mg PO BEDTIME [facility] Last Admin: 11/15/17 20:16 Dose: 0.4 mg Tramadol HCl (Ultram*) 50 mg PO Q6H PRN PRN Reason: PAIN - MODERATE Last Admin: 11/16/17 07:29 Dose: 50 mg Vital Signs - 8 hr 11/16/17 11:58 Temperature 98.7 F Pulse Rate 83 Respiratory 18 Rate Blood Pressure 117/50 (mmHg) O2 Sat by Pulse 95 Oximetry Oxygen Devices in Use Now: Nasal Cannula Appearance: Alert, NAD Eyes: No Scleral Icterus, PERRLA Ears/Nose/Mouth/Throat: Clear Oropharnyx, Mucous Membranes Moist Neck: NL Appearance and Movements; NL JVP, Trachea Midline Respiratory: Symmetrical Chest Expansion and Respiratory Effort, Clear to Auscultation Cardiovascular: NL Sounds; No Murmurs; No JVD, RRR, No Edema Extremities: No Edema, No Clubbing, Cyanosis, - - Difficulty with extension of fingers on operative side, brisk cap refill Skin: No Rash or Ulcers, - - dressing CDI Neurological: Alert and Oriented x 3, NL Sensation Nutrition: Taking PO's Result Diagrams: 11/16/17 05:35 11/16/17 05:35 Microbiology and Other Data: Microbiology 11/15/17 12:46 Anaerobic Culture - Preliminary Wound - Left No Growth Day 1 Gram Stain - Final Wound Culture - Preliminary No Growth Day 1 Assess/Plan/Problems-Billing Assessment: This is a pleasant 72 year old male with history of Parkinson's and non-union of humeral fracture that presented yesterday for ORIF with Dr. Galindo. - Patient Problems (1) Fracture of humerus with nonunion Code(s): S42.309K - UNSP FX SHAFT OF HUMERUS, UNSP ARM, SUBS FOR FX W NONUNION SNOMED Code(s): 25371053 Comment: - ORIF, POD1 - POC as per ortho - Pain control, bowel regimen - PT/OT - Had hx of post-op delerium, recommend limit narcotics (2) Parkinson disease Code(s): G20 - PARKINSON'S DISEASE SNOMED Code(s): 65526170 Comment: - continue sinemet - supportive care (3) Depression Code(s): F32.9 - MAJOR DEPRESSIVE DISORDER, SINGLE EPISODE, UNSPECIFIED SNOMED Code(s): 07094999 Comment: - Likely r/t PD - continue donepezil and paxil Status and Disposition: Remain inpatient as per ortho. Progressing.
[2017-11-16] MEDS: Tamsulosin CAP* 0.4 MG PO SCH (20:42)
[2017-11-16] MEDS ORDERED: Oxybutynin XL TAB* 5 MG PO SCH (21:00)
[2017-11-16] MEDS: Carbidopa/Levodop 25/100 MG TAB(*) PO SCH (22:50)
[2017-11-17] MEDS: traMADol TAB* 50 MG PO PRN (00:05)
[2017-11-17 05:10] VITALS: BP 125/67
[2017-11-17] MEDS: Acetaminophen TAB* 325 MG PO SCH (05:53)
[2017-11-17 06:20] LABS: Hematocrit 26 % (42-52); Hemoglobin 8.7 g/dl (14.0-18.0); Mean Platelet Volume 7.5 um3 (7.4-10.4); Platelet Count 175 10^3/ul (150-450)
--- NOTE | 2017-11-17 08:09 | PN ---
Subjective Date of Service: 11/17/17 Interval History: Pt without complaint this morning. Nursing reports sundowning overnight, but alert this morning and oriented to self and place. Denies pain, N/V, constipation, SOB, CP, palpitations. Objective Active Medications: Scheduled Acetaminophen (Tylenol Tab*) 975 mg PO Q8HR LAURA Calcium/Vitamin D (Oscal D Tab 250/125*) 1 tab PO QAM LAURA Carbidopa/Levodopa (Sinemet 25/100 Tab(*)) 1 tab PO DAILY@2300 LAURA Cholecalciferol (Vitamin D Tab*) 1,000 units PO QAM LAURA Donepezil HCl (Aricept Tab*) 5 mg PO QPM LAURA Enoxaparin Sodium (Lovenox(*)) 40 mg SUBCUT Q24H LAURA Lactated Ringer's (Lactated Ringers 1000 Ml Bag*) 1,000 mls @ 100 mls/hr IV PER RATE LAURA Melatonin (Melatonin) 9 mg PO BEDTIME LAURA Pto:Nf Med* (Rytary (61.25/245mg Cap)) 3 cap PO TID LAURA Oxybutynin Chloride (Ditropan Xl Tab*) 5 mg PO BEDTIME LAURA Paroxetine HCl (Paxil Tab*) 40 mg PO QAM LAURA Polyethylene Glycol/Electrolytes (Miralax*) 17 gm PO QPM LAURA Ropinirole HCl (Requip Tab*) 1 mg PO QAM LAURA Tamsulosin HCl (Flomax Cap*) 0.4 mg PO BEDTIME LAURA PRN Carbidopa/Levodopa (Sinemet 25/100 Tab(*)) 1 tab PO DAILY PRN PRN Reason: parkinsons Diphenhydramine HCl (Benadryl Iv*) 25 mg IV Q6H PRN PRN Reason: itching Diphenhydramine HCl (Benadryl Po*) 25 mg PO Q6H PRN PRN Reason: itching Docusate Sodium (Colace Cap*) 100 mg PO BID PRN PRN Reason: CONSTIPATION Haloperidol Lactate (Haldol Inj Iv/Im*) 5 mg IV SLOW PU Q6H PRN PRN Reason: AGITATION Magnesium Hydroxide (Milk Of Magnesia Liq*) 30 ml PO Q6H PRN PRN Reason: constipation Ondansetron HCl (Zofran Inj*) 4 mg IV Q6H PRN PRN Reason: nausea Ondansetron HCl (Zofran Odt Tab*) 4 mg PO Q6H PRN PRN Reason: NAUSEA Tramadol HCl (Ultram*) 50 mg PO Q6H PRN PRN Reason: PAIN - MODERATE Vital Signs - 8 hr 11/17/17 11/17/17 11/17/17 00:05 00:14 01:25 Temperature 98.6 F Pulse Rate 79 Respiratory 24 16 Rate Blood Pressure 112/70 (mmHg) O2 Sat by Pulse 94 94 Oximetry 11/17/17 11/17/17 02:08 03:39 Temperature 99.2 F Pulse Rate 80 Respiratory 22 16 Rate Blood Pressure 125/67 (mmHg) O2 Sat by Pulse 96 Oximetry Oxygen Devices in Use Now: None Eyes: No Scleral Icterus, PERRLA Ears/Nose/Mouth/Throat: NL Teeth, Lips, Gums, Clear Oropharnyx, Mucous Membranes Moist Neck: NL Appearance and Movements; NL JVP Respiratory: Symmetrical Chest Expansion and Respiratory Effort, Clear to Auscultation Cardiovascular: NL Sounds; No Murmurs; No JVD, RRR Abdominal: NL Sounds; No Tenderness; No Distention Extremities: No Edema, No Clubbing, Cyanosis Skin: No Rash or Ulcers Neurological: - - Alert and oriented to self and location. Says month is September. Result Diagrams: 11/17/17 06:06 11/16/17 05:35 Microbiology and Other Data: Microbiology 11/15/17 12:46 Anaerobic Culture - Preliminary Wound - Left No Growth Day 1 Gram Stain - Final Wound Culture - Preliminary No Growth Day 1 Assess/Plan/Problems-Billing Assessment: AL is a 72 year old male with history of Parkinson's, depression, and non-union of L humeral fracture, now s/p for ORIF with Dr. aGlindo on 11/15. - Patient Problems (1) Fracture of humerus with nonunion Status: Acute Code(s): S42.309K - UNSP FX SHAFT OF HUMERUS, UNSP ARM, SUBS FOR FX W NONUNION SNOMED Code(s): 25490715 Comment: - S/p ORIF with Dr Galindo on 11/15, POD2 - POC as per ortho - Pt is progressing well. L hand with sensation intact and brisk capillary refill. Able to move fingers slightly, but has baseline contracture per son. - Pain well controled with tylenol 975mg Q8H and tramadol 50mg Q6H PRN (hx of post-op delerium so limiting narcotics). Has not required PRN tramadol since last night. - Pt denies constipation on bowel regimen with Miralax, additional agents PRN - H/H trending down in the setting of recent ORIF. .09/21 today from yesterday. Will continue to moniter. - Wound culture (11/15) with no growth to date - PT/OT to focus on hand range of motion (2) Depression Status: Acute Code(s): F32.9 - MAJOR DEPRESSIVE DISORDER, SINGLE EPISODE, UNSPECIFIED SNOMED Code(s): 45267615 Comment: - Likely r/t PD - Continue come regimen of donepezil and paxil, and nightly melatonin (3) Parkinson disease Status: Chronic Code(s): G20 - PARKINSON'S DISEASE SNOMED Code(s): 24146461 Comment: - Appears to be at baseline. Continue home meds of sinemet 25/100 1 tab daily and ropinirole 1mg daily - Supportive care (4) DVT prophylaxis Status: Acute Code(s): OVQ8491 - SNOMED Code(s): 902045550 Comment: - Continue SQ Lovenox 40mg daily (5) Patient is full code Status: Acute Priority: High Onset Date: 10/19/14 Code(s): Z78.9 - OTHER SPECIFIED HEALTH STATUS SNOMED Code(s): 256508543 Status and Disposition: D/C home today with usual homecare services per ortho.
[2017-11-17] MEDS: rOPINIRole TAB* 1 MG PO SCH (09:31)
[2017-11-17] MEDS: Calcium/Vitamin D TAB 250/125* TAB PO SCH (09:31)
[2017-11-17] MEDS: Cholecalciferol TAB* 1000 UNITS PO SCH (09:31)
[2017-11-17] MEDS: LEVODOPA PO SCH (09:32)
[2017-11-17] MEDS: CARBIDOPA PO SCH (09:32)
[2017-11-17] MEDS: PARoxetine HCL TAB* 40 MG PO SCH (09:32)
--- NOTE | 2017-11-17 09:54 | PN ---
Progress Note - Progress Note Date of Service: 11/17/17 SOAP: Subjective: POD #2 Left humerus ORIF. Pt doing ok, no c/o of pain. Spoke with son who feels like pt is at baseline and could be d/c'd home with usual home health care. Objective: Vitals: Temp Pulse Resp BP Pulse Ox 98.3 F 70 20 125/67 95 11/17/17 08:09 11/17/17 08:09 11/17/17 08:09 11/17/17 03:39 11/17/17 08:09 Gen: Alert, oriented to self and place LUE: Splint and dressing C/D/I, sling in place. + sensation and cap refill to hand, contracted but able to move digits some. Per son, contracture is baseline Labs: Laboratory Results - last 24 hr 11/17/17 06:06 Hgb 8.7 L Hct 26 L Plt Count 175 MPV 7.5 Assessment: POD #2 Left humerus ORIF Plan: D/C home today Tylenol, Tramadol prn pain F/u with Dr. Galindo 10-14 days post op
--- NOTE | 2017-11-18 03:22 | DS ---
DISCHARGE SUMMARY: DATE OF ADMISSION: 11/15/17 DATE OF DISCHARGE: 11/17/17 PROVIDER: Linsey Galindo MD.* (DICTATED BY HERNANDEZ ALVARADO) ADMITTING DIAGNOSIS: Left proximal humerus fracture nonunion. DISCHARGE DIAGNOSIS: Left proximal humerus fracture nonunion, status post open reduction and internal fixation of the left humerus. SECONDARY DIAGNOSES: 1. Depression. 2. Parkinson's disease. HISTORY OF PRESENT ILLNESS: Mr. Meier is a 72-year-old male who has a history of Parkinson's disease with multiple falls. He presented to the clinic for followup of left humeral shaft fracture. He failed conservative measures including the sling and Adhikari brace and the fracture went on to a nonunion. He elected to undergo open reduction and internal fixation of the left humeral nonunion. HOSPITAL COURSE: On 11/15/17, the patient was admitted to [facility] and underwent a successful open reduction and internal fixation of the left humerus by Dr. Galindo. He was placed in a long-arm splint with a sling. He recovered briefly in the Postanesthesia Care Unit and was transferred to the short-stay surgical unit in stable condition. On postop day 1, the patient was having some postoperative delirium and confusion. He was requiring 2 L of oxygen to maintain an O2 sat over 94%. He also had an acute blood loss anemia with an H and H of 9.3 and 27. The patient had good pain control with Tylenol and tramadol. On postop day 2, the patient's H and H was more stable at 8.7 and 26. Delirium seems to be improving and he was titrated off oxygen. When discussed discharge plan with his son, the son feels as though the patient would be stable for discharge home. They have tried rehab facilities in the past and the patient tends to get more agitated. They do have home healthcare with [facility], which they will continue with and the son will be around to assist the patient and his as needed. DISCHARGE CONDITION: Stable. DISCHARGE MEDICATIONS: The patient will use: 1. Tylenol 975 mg p.o. q.6 hours p.r.n. pain. 2. Tramadol 50 mg 1 tab p.o. q.6 hours p.r.n. severe pain. The patient will resume his home medications of: 1. Calcium vitamin D supplement 1 tab p.o. q. day. 2. Sinemet 25/100 mg tabs 1 p.o. daily. 3. Vitamin D 1000 units daily. 4. Aricept 5 mg q.p.m. 5. Ditropan 5 mg p.o. q.h.s. 6. Paxil 40 mg p.o. q.a.m. 7. Requip 1 mg p.o. q. day. 8. Flomax 0.4 mg p.o. q.h.s. WOUND CARE: The patient will keep his splint clean and dry until postop visit. He will be nonweightbearing with the use of the left upper extremity. He will use the sling as needed. He will continue range of motion of his fingers and wrist on the left hand, although he is limited due to prior contracture. He will follow up in the office 10 to [address] Galindo. All of the patient's questions and his son's questions were answered to their full satisfaction. HERNANDEZ ALVARADO [id number]/[facility] #: [id number] MTDAnya
== END 2017-11-17 12:45 | disposition home or self-care (01) | DRG 493 ==
LOC: AA 09:53 → SSU 18:39
PROVIDERS: ADMIT Orthopaedic Surgery; ATTEND Internal Medicine
PROC: 0PUD07Z Supplement Left Humeral Head with Autologous Tissue Substitute, Open Approach (ICD-10-PCS; 2017-11-15)
PROC: 0PSD04Z Reposition Left Humeral Head with Internal Fixation Device, Open Approach (ICD-10-PCS; principal; 2017-11-15 12:15)
DX: S42.202A Unspecified fracture of upper end of left humerus, initial encounter for closed fracture (principal); D62 Acute posthemorrhagic anemia; F05 Delirium due to known physiological condition; R41.0 Disorientation, unspecified; F32.9 Major depressive disorder, single episode, unspecified; G20 Parkinson's disease; Z96.643 Presence of artificial hip joint, bilateral; W19.XXXA Unspecified fall, initial encounter; N40.0 Benign prostatic hyperplasia without lower urinary tract symptoms; Z96.9 Presence of functional implant, unspecified; M43.17 Spondylolisthesis, lumbosacral region; Z88.5 Allergy status to narcotic agent; Y92.9 Unspecified place or not applicable; Z91.81 History of falling; Z72.89 Other problems related to lifestyle
CPT/HCPCS: 36415; 76001; 80048; 85014; 85018; 85049; 87070; 87073; 87205; 90686; A9270-GY; G8978-GP-CJ; G8979-GP-CI; G8987-GO-CM; G8988-GO-CJ; J0171; J0330; J0690; J1650; J1885; J2250; J2704; J2795; J3010; J3370; J3490